=== PATIENT | male | born 1980 | race Caucasian/White ===

== ENCOUNTER 2023-03-18 21:22 | Emergency (ER) | payer BC, SELFPAY ==
[2023-03-18 21:23] VITALS: BP 148/92; PULSE 87; RESP 18; TEMP 36.5; O2SAT 96; BMI 18.1
--- NOTE | 2023-03-18 21:37 | HMH.EDGENADL ---
Discharge Plan Disposition Patient Disposition: Home, Self-Care Prescriptions Prescriptions: New doxycycline monohydrate 100 mg capsule 100 mg PO BID 10 Days Qty: 20 0RF Referrals Follow up/Referrals: Virgil Rossi MD [Primary Care Provider] - See instructions Activity Restrictions/Add. Instructions Additional Instructions/Restrictions: Take doxycycline twice daily for 10 days. Be sure to wear sunscreen, avoid long sun exposure, as discussed. It can cause bad sunburn. If diarrhea begins, you can use probiotic [id number]. Take Tylenol 1000 mg every 6 hours (4 times daily) and ibuprofen 400 mg every 6 hours (4 times daily) as needed with food and water to prevent GI upset and kidney damage. Call your family doctor to establish care for this visit to the emergency department and schedule follow-up within 48 hours to ensure improvement. If you have any worsening of your condition or any other concerning signs or symptoms, return to the emergency department or your primary care doctor for further evaluation. Clinical Impressions Clinical Impression: Tick bite Instructions Patient Instructions: DI for Skin Abscess Discharge ED Provider: Raghu Armendariz General Adult HPI General Chief complaint: Skin/Abscess/Foreign Body Stated complaint: tick bite RT leg Time Seen by Provider: 03/18/23 21:29 Mode of Arrival: Family Vehicle Source of Information: Patient Limitations: No Limitations Description of Symptoms (Recalled from ER Triage Doc. by RN): bump on right upper leg History of Present Illness HPI narrative: Is a 42-year-old male with no relevant medical history presenting with tick bite and concern for tickborne illness. Patient states that he has had numerous ticks on him. Does not remember having one on the specific spot, but developed a circular bruise around it 2 days prior to arrival. Has had a little bit of a headache, but denies any other rash, neck stiffness, confusion, vision changes, weakness, fevers, chills, chest pain, shortness of breath, nausea or vomiting, or any other concerns. Family convinced him to come to the emergency department on concern for tickborne illness. Related Data Previous Rx's Medication Instructions Recorded doxycycline monohydrate 100 mg 100 mg PO BID 10 days #20 caps 03/18/23 capsule Allergies Allergy/AdvReac Type Severity Reaction Status Date / Time No Known Allergies Allergy Unverified 08/01/17 14:41 [facility] Disclaimer: The information contained in this section may have been updated after the patient was seen, as this information can be updated by other users. Social History Smoking Status: Current every day smoker alcohol intake: never current occupational status: employed Travel in the last 8 weeks: None ROS Obtained: Yes All systems reviewed & no additional complaints except as documented Physical Exam General General appearance: alert, in no apparent distress and other ( ) Head Head exam: atraumatic and normocephalic Eye Eye exam: Present normal appearance, PERRL and EOMI ENT ENT exam: Present mucous membranes moist Neck Neck exam: Present normal inspection, full ROM and trachea midline Respiratory Respiratory exam: Absent respiratory distress, wheezes, stridor, accessory muscle use or prolonged expiratory phase Cardiovascular Cardiovascular exam: Present regular rate and normal rhythm Abdominal Exam Abdominal exam: Present soft; Absent distention, tenderness, guarding, rebound, rigidity or normal bowel sounds Extremities Exam Extremities exam: Present other (Circular bruise on distal third of right thigh. Punctate area of erythema in the center. No rash elsewhere.); Absent edema Neurological Exam Neurological exam: Present alert, oriented X3, CN II-XII intact and normal gait; Absent motor sensory deficit Skin Skin exam: Present warm and dry; Absent diaphoresis or erythema Medical Decision Making Medical Records M
[2023-03-18 21:44] VITALS: BP 148/92; PULSE 87; RESP 18; TEMP 36.5; O2SAT 96
== END 2023-03-18 21:55 | disposition home or self-care (01) ==
PROVIDERS: Emergency Provider Emergency Medicine; PCP Family Medicine
DX: S70.361A Insect bite (nonvenomous), right thigh, initial encounter (principal); W57.XXXA Bitten or stung by nonvenomous insect and other nonvenomous arthropods, initial encounter; F17.200 Nicotine dependence, unspecified, uncomplicated
CPT/HCPCS: 99283

== ENCOUNTER 2023-08-24 07:06 | Emergency (ER) | payer BC, SELFPAY ==
[2023-08-24 07:06] VITALS: BP 164/109; PULSE 99; RESP 16; TEMP 36.7; O2SAT 99; BMI 19.1
--- NOTE | 2023-08-24 07:27 | HMH.EDGENADL ---
Discharge Plan Disposition Patient Disposition: Home, Self-Care Prescriptions Prescriptions: No Action doxycycline monohydrate 100 mg capsule 100 mg PO BID 10 Days Qty: 20 0RF Referrals Follow up/Referrals: Provider,Referral, [Primary Care Provider] - See instructions Activity Restrictions/Add. Instructions Additional Instructions/Restrictions: Your symptoms today are consistent with muscle fasciculations which is most likely benign process, there were no obvious electrolyte abnormalities or thyroid dysfunction etc. on your blood test to suggest any cause of your symptoms today. If your symptoms continue I recommend you follow-up with your primary care doctor to get EMG studies and be evaluated for other pathologies but this should be self-limiting. Clinical Impressions Clinical Impression: Fasciculations of muscle Discharge ED Provider: Rambo Mccray General Adult HPI General Chief complaint: Extremity Problem,Nontraumatic Stated complaint: left arm numb Time Seen by Provider: 08/24/23 07:18 Mode of Arrival: Ambulatory Source of Information: Patient Limitations: No Limitations Description of Symptoms (Recalled from ER Triage Doc. by RN): Patient reports left arm tingling since yesterday. Denies chest pain or shortness of breath. History of Present Illness HPI narrative: Patient is a 43-year-old male with no significant past medical history presents today with left upper extremity discomfort. He describes it as if there is occasional burning in his left arm and cramping and then throbbing. Denies any change in movement or sensation. Denies any neck pain denies any chest pain or exertional symptoms. No nausea vomiting diarrhea changes in medications decreased p.o. intake etc. recently. Related Data Previous Rx's Medication Instructions Recorded doxycycline monohydrate 100 mg 100 mg PO BID 10 days #20 caps 03/18/23 capsule Allergies Allergy/AdvReac Type Severity Reaction Status Date / Time No Known Allergies Allergy Unverified 08/01/17 14:41 [facility] Disclaimer: The information contained in this section may have been updated after the patient was seen, as this information can be updated by other users. Social History (Updated 03/18/23 @ 21:42 by Raghu Armendariz MD) Smoking Status: Current every day smoker alcohol intake: never current occupational status: employed Travel in the last 8 weeks: None ROS Obtained: Yes All systems reviewed & no additional complaints except as documented Physical Exam General General appearance: alert Respiratory Respiratory exam: Present normal lung sounds bilaterally Cardiovascular Cardiovascular exam: Present regular rate Extremities Exam Extremities exam: Present other (No evidence of swelling erythema tenderness he has a normal axillary median radial and ulnar nerve motor and sensory function including position pain temperature) Neurological Exam Neurological exam: Present alert and other (While examining the patient he has obvious fasciculations in his left upper extremity which the patient points out as the discomfort that he has been describing) Medical Decision Making Richard Inquiry Pt receiving controlled substance: No Vital Signs: 08/24/23 07:06 Temperature 98.1 F Temperature Source Oral Pulse Rate [Radial] 99 H Respiratory Rate 16 Blood Pressure [Right Arm] 164/109 H Blood Pressure Mean [Right Arm] 127 Blood Pressure Source [Right Arm] Automatic Cuff Blood Pressure Position [Right Arm] Sitting 02 Sat by Pulse Oximetry 99 Oxygen Delivery Method Room Air Lab Data Lab results reviewed: Yes I reviewed the patient's lab results. Lab Results 08/24/23 07:15: WBC 6.2, RBC 5.10, Hgb 16.8, Hct 50.7, MCV 99.5 H, MCH 32.9 H, MCHC 33.1, RDW 13.7, Plt Count 228, MPV 7.8, Neut % (Auto) 59.2, Lymph % (Auto) 28.4, [place] % (Auto) 7.4, Eos % (Auto) 4.2, Baso % (Auto) 0.8, Neut # (Auto) 3.7, Lymph # (Auto) 1.8, [place] # (Auto) 0.5, Eos # (Auto) 0.3, Baso # (Auto) 0.1, Sodium 138, Potassium 4.1, Chloride 105, Carbon Dioxide 27, Anion Gap 10.1, BUN 8 L, Creatinine 1.00, Estimated Creat Clear 80, Estimated GFR 81, Est GFR ( Amer) 98, Glucose 98, Calcium 9.1, Magnesium 2.1, Total Bilirubin 0.5, AST 46, ALT 36, Alkaline Phosphatase 131 H, Total Creatine Kinase 149, Total Protein 7.9, Albumin 4.5, Globulin 3.4 H, Albumin/Globulin Ratio 1.3, TSH 1.28 08/24/23 07:15 08/24/23 07:15 Orders (Tests/Meds): ED MEDICATIONS Generic Name Dose Route Start Last Admin Trade Name Freq PRN Reason Stop Dose Admin Sodium Chloride 10 ml 08/24/23 07:27 Sodium Chloride 0.9% 10ml Vial IV 09/23/23 07:26 NEEDED PRN to Dilute Lorazepam inj Discontinued Medications Generic Name Dose Route Start Last Admin Trade Name [place] PRN Reason Stop Dose Admin Lactated Ringer's 1,000 mls @ 999 mls/hr 08/24/23 07:30 08/24/23 07:35 Lactated Ringer's 1000 Ml Bag IV 08/24/23 08:30 999 mls/hr .Q1H1M NAHOMI Administration Lorazepam 0.5 mg 08/24/23 07:27 08/24/23 07:35 Lorazepam 2mg/Ml Vial IV 08/24/23 07:28 0.5 mg ONCE ONE Administration ORDERS Category Date Time Status CBC w/Auto Diff [Complete Blood Count Auto Diff] Stat Lab 08/24/23 07:15 Completed CK [Creatine Kinase] Stat Lab 08/24/23 07:15 Completed CMP [Comprehensive Metabolic Panel] Stat Lab 08/24/23 07:15 Completed Magnesium Stat Lab 08/24/23 07:15 Completed TSH [Thyroid Stimulating Hormone] Stat Lab 08/24/23 07:15 Completed Medical Decision Narrative: Patient is a 43-year-old male presents today with a normal neurovascular exam in the left upper extremity but significant discomfort associated with what was made evident on physical exam his fasciculations. I am not concerned about referred symptoms such as would be associated with ACS etc. Additionally he has no evidence of any swelling has normal pulses not consistent with any type of vascular abnormality and his neurologic exam is normal aside from the fasciculations. Fasciculations are most likely benign and I will check electrolytes as well as a TSH and give IV fluids and a low-dose of Ativan to see if this will ask any of his symptoms and will reassess. I will advise that he follow-up with his primary care doctor to get EMG studies if this persists as this certainly could be pathologic as well and is associated with other serious pathologies including ALS etc. Reassessment 8:50 AM. Electrolytes thyroid function unremarkable I am not concerned about an emergent medical condition at this point however patient is unchanged from a symptomatic standpoint still having some fasciculations. He has been advised to follow-up with primary care doctor to get EMG studies if needed. This should be self-limiting and is most likely benign process. Patient was discharged in stable condition. Critical Care Critical Care Time Critical Care Time: No
[2023-08-24] MEDS: LORazepam 2MG/ML VIAL 0.5 MG IV (07:35)
[2023-08-24] MEDS: LACTATED RINGERS 1000ML 1,000 ML 999 ML IV (07:35)
[2023-08-24 07:44] LABS: Alanine Aminotransferase 36 U/L (12-78); Albumin Level 4.5 g/dl (3.5-5.0); Albumin/Globulin Ratio 1.3 (1.1-1.8); Alkaline Phosphatase 131 U/L (38-126); Anion Gap 10.1 mEq/L (5-15); Aspartate Amino Transferase 46 U/L (17-59); Bilirubin,Total 0.5 mg/dl (0.2-1.3); Blood Urea Nitrogen 8 mg/dl (9-20); Calcium 9.1 mg/dl (8.4-10.2); Carbon Dioxide 27 mmol/L (22.0-30.0); Chloride 105 mmol/L (98-107); Creatine Kinase 149 U/L (55-170); Creatinine Clearance Estimated 80 mL/min (50-200); Estimated Glomerular Filt Rate 81 ml/min (>60); GFR (African American) 98 ML/MIN (>60); Globulin 3.4 g/dL (1.3-3.2); Glucose 98 mg/dl (74-100); Magnesium 2.1 mg/dl (1.6-2.3); Potassium 4.1 mmoL/L (3.5-5.1); Sodium 138 mmol/L (136-145); Total Protein,Serum 7.9 g/dl (6.3-8.2)
[2023-08-24 08:00] LABS: Basophils # 0.1 K/mm3 (0-0.2); Basophils % 0.8 % (0.1-2.0); Eosinophils # 0.3 K/mm3 (0.0-0.4); Eosinophils % 4.2 % (0.1-12.0); Hematocrit 50.7 % (42.0-52.0); Hemoglobin 16.8 g/dL (14.1-18.0); Lymphocytes # 1.8 K/mm3 (0.7-4.5); Lymphocytes % 28.4 % (10-50); Mean Corpuscular HGB Conc 33.1 g/dL (31.8-35.4); Mean Corpuscular Hemoglobin 32.9 pg (27.0-31.2); Mean Corpuscular Volume 99.5 fl (80-94); Mean Platelet Volume 7.8 fl (7.4-10.4); Monocytes # 0.5 K/mm3 (0.1-1.0); Monocytes % 7.4 % (1.7-9.3); Neutrophils # 3.7 K/mm3 (1.8-7.8); Neutrophils % 59.2 % (37.0-80.0); Platelet Count 228 K/mm3 (142-424); Red Cell Distribution Width 13.7 % (11.5-17.5); White Blood Count 6.2 K/mm3 (4.8-10.8)
[2023-08-24 08:14] LABS: Thyroid Stimulating Hormone 1.28 uIU/mL (0.465-4.68)
[2023-08-24 08:56] VITALS: BP 149/98; PULSE 90; RESP 18; TEMP 36.7; O2SAT 99
== END 2023-08-24 08:56 | disposition home or self-care (01) ==
PROVIDERS: Emergency Provider Student in an Organized Health Care Education/Training Program
DX: R25.3 Fasciculation (principal); R20.0 Anesthesia of skin; F17.200 Nicotine dependence, unspecified, uncomplicated
CPT/HCPCS: 80053; 82550; 83735; 84443; 85025; 96361; 96374; 99285

== ENCOUNTER 2023-08-28 07:07 | Emergency (ER) | payer BC, SELFPAY ==
[2023-08-28] VITALS (7 sets, daily range): BP systolic 143–164; BP diastolic 93–103; PULSE 76–96; RESP 13–16; TEMP 36.5; O2SAT 97–100; BMI 19.2
--- NOTE | 2023-08-28 07:16 | ECG_ITS ---
APPROVED REPORT Exam: Resting ECG HR:88 bpm ECG Measurements Heart Rate 88 AXES ME 148 P 86 QRSd 93 QRS 72 QT 360 T 79 QTc 406 Conclusion SINUS RHYTHM POSSIBLE RIGHT ATRIAL ENLARGEMENT [0.25mV P-WAVE] POSSIBLE RIGHT VENTRICULAR CONDUCTION DELAY [RSR (QR) IN V1/V2] VOLTAGE CRITERIA FOR LVH [MEETS CRITERIA IN ONE OF: R(aVL), S(V1), R(V5), R(V5/V6)+S(V1)] ABNORMAL ECG UNCONFIRMED REPORT Electronically signed by : Agapito Finney MD 08/28/2023 20:18:08
--- NOTE | 2023-08-28 07:36 | CT_ITS ---
FINAL REPORT TECHNIQUE: Thin section axial CT with IV contrast supplemented with multiplanar reconstruction under CT angiogram protocol. 3-D reconstructions were performed. This study was performed with techniques to keep radiation doses as low as reasonably achievable (ALARA). Individualized dose reduction techniques using automated exposure control or adjustment of mA and/or kV according to the patient's size were employed. CLINICAL HISTORY: syncope/CALVO; back/ LUE pain weakness since Fri, hx of testicular cancer COMPARISON: None FINDINGS: The distal vertebral, basilar and distal internal carotid arteries have an unremarkable appearance. No aneurysm is seen. Major intracranial vessels are patent without significant stenosis. There is a 15 mm lytic area in the right posterior mandibular body, with cortical disruption superiorly. This may represent a periapical abscess or radicular cyst. IMPRESSION: Unremarkable CTA of the head. 15 mm lytic area in the right posterior mandible body, with superior cortical disruption. This may represent a periapical abscess or radicular cyst. Reviewed, Interpreted and Dictated by Jass Randle III, MD Transcribed by Myrna Arellano Authenticated and [facility]
--- NOTE | 2023-08-28 07:36 | CT_ITS ---
FINAL REPORT TECHNIQUE: Then section axial CT images of the chest were obtained with contrast. Three-D reformatted images were also obtained.This study was performed with techniques to keep radiation doses as low as reasonably achievable (ALARA). Individualized dose reduction techniques using automated exposure control or adjustment of mA and/or kV according to the patient's size were employed. CLINICAL HISTORY: syncope/CALVO; back/ LUE pain weakness since Fri, hx of testicular cancer COMPARISON: None FINDINGS: There is no evidence of pulmonary embolism. There is no evidence of thoracic aortic aneurysm or dissection. There is no evidence of mediastinal or hilar mass or adenopathy. Mild changes of emphysema are present as well as mild scarring. There is a calcified granuloma present in the left lung base. There is no evidence of pulmonary mass or suspicious nodule. No localized inflammatory process is seen within the lungs. Limited images of the upper abdomen reveal a 10 mm right posterior renal focus of signal, that is not compatible in appearance with a simple cyst. This may represent a complex cyst although other masses cannot be excluded. IMPRESSION: No evidence of pulmonary embolism. 10 mm right posterior renal focus of abnormal signal, not compatible with a simple cyst. This may represent a complex cyst or other mass, and would suggest renal mass protocol CT for further evaluation as clinically indicated. Reviewed, Interpreted and Dictated by Jass Randle III, MD Transcribed by Myrna Arellano Authenticated and [facility]
--- NOTE | 2023-08-28 07:36 | CT_ITS ---
FINAL REPORT TECHNIQUE: Thin-section axial CT with IV contrast supplemented with multi planar reconstruction under CT angiogram protocol was performed of the neck. This study was performed technique to keep radiation doses as low as reasonably achievable, (ALARA). NASCET criteria was utilized during interpretation. CLINICAL HISTORY: syncope/CALVO; back/ LUE pain weakness since Fri COMPARISON: None FINDINGS: Aortic arch: Arch shows no significant narrowing. Great vessel origins are widely patent. Right carotid: No significant stenosis is seen at the cervical common or internal carotid artery. Left carotid: No significant stenosis is seen at the cervical common or internal carotid artery. Vertebrals: Left vertebral artery is dominant. No significant stenosis is present. Note is made of a 15 mm lytic area in the right mandibular bone posteriorly, with cortical disruption superiorly that may represent a periapical abscess or radicular cyst. IMPRESSION: No evidence of significant stenosis or major branch occlusion. 15 mm lytic area in the right mandibular bone posteriorly, with cortical disruption superiorly that may represent periapical abscess or radicular cyst. Reviewed, Interpreted and Dictated by Jass Randle III, MD Transcribed by Myrna Arellano Authenticated and [facility]
--- NOTE | 2023-08-28 07:36 | CT_ITS ---
FINAL REPORT TECHNIQUE: Axial imaging of the left upper extremity was obtained after the intravenous administration of contrast. Reformatted images were also obtained and reviewed. This study was performed with techniques to keep radiation doses as low as reasonably achievable (ALARA). Individualized dose reduction techniques using automated exposure control or adjustment of mA and/or kV according to the patient's size were employed. CLINICAL HISTORY: syncope/CALVO; back/ LUE pain weakness since Fri FINDINGS: Vasculature of the left upper extremity is well-opacified. No occlusion is seen. There is no mass or fluid collection. Musculature is intact. IMPRESSION: Unremarkable CT angiogram of the left upper extremity. Reviewed, Interpreted and Dictated by Jass Randle III, MD Transcribed by Radha Hayden Authenticated and [facility]
--- NOTE | 2023-08-28 07:40 | ED_ITS ---
Discharge Plan Disposition Patient Disposition: Home, Self-Care Prescriptions Prescriptions: New prednisone 50 mg tablet 50 mg PO DAILY 5 Days Qty: 5 0RF Rx Instructions: Please begin 1 day after ED visit gabapentin 100 mg capsule 100 mg PO TID PRN (Reason: pain ) 7 Days Qty: 21 0RF No Action doxycycline monohydrate 100 mg capsule 100 mg PO BID 10 Days Qty: 20 0RF Referrals Follow up/Referrals: Provider,Referral, MD [Primary Care Provider] - See instructions Activity Restrictions/Add. Instructions Additional Instructions/Restrictions: Have a C6-C7 herniated disc with nerve root impingement on appointment has been made to see Dr. Reagan at [facility] this week. Clinical Impressions Clinical Impression: Headache, Syncope, LUE weakness, Cervical disc disorder at C6-C7 level with radiculopathy Instructions Patient Instructions: DI for Syncope in Adults (Fainting), DI for Syncope in Children (Fainting) Discharge ED Provider: Rambo Mccray General Adult HPI General Chief complaint: Syncope Stated complaint: left arm pain blacked out Time Seen by Provider: 08/28/23 07:20 Mode of Arrival: Wheelchair Source of Information: Patient Limitations: No Limitations Description of Symptoms (Recalled from ER Triage Doc. by RN): Patient states that he blacked out this morning and has continued to have left arm pain that is not getting better. States that his head is spinning and he can't even remember how he got here this morning. History of Present Illness HPI narrative: Patient is a 43-year-old male presenting today with multiple complaints. I saw this patient last he presented at that time with left upper extremity fasciculations but has an otherwise normal cardiovascular neurologic exam. He states since that time his fasciculations have completely resolved however he has other complaints now. In the same arm where the fasciculations with his left upper extremity he now has had some progressive weakness in the left upper extremity. 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 He is able to move everything but just has some weakness. States he is also had some [id number] and burning sensation in that left upper extremity primarily in his thumb and index finger but now he states that the pain has become severe. Denies any temperature changes. Also states he is having some back pain just medial to his left scapula. Also today states he is having some mild neck pain as well as a severe headache states he went to take a shower and woke up having passed out did not recall what happened prior to that. Denies any chest pain fevers chills any other symptoms. Other than testicular cancer that is in remission he has no other past medical history. Related Data Previous Rx's Medication Instructions Recorded doxycycline monohydrate 100 mg 100 mg PO BID 10 days #20 caps 03/18/23 capsule gabapentin 100 mg capsule 100 mg PO TID PRN pain 7 days #21 08/28/23 caps prednisone 50 mg tablet 50 mg PO DAILY 5 days #5 tabs 08/28/23 Allergies Allergy/AdvReac Type Severity Reaction Status Date / Time No Known Allergies Allergy Unverified 08/01/17 14:41 [facility] Disclaimer: The information contained in this section may have been updated after the patient was seen, as this information can be updated by other users. Social History (Updated 03/18/23 @ 21:42 by Raghu Armendariz MD) Smoking Status: Current every day smoker alcohol intake: never current occupational status: employed Travel in the last 8 weeks: None ROS Obtained: Yes All systems reviewed & no additional complaints except as documented Physical Exam General General appearance: alert and in no apparent distress Respiratory Respiratory exam: Present normal lung sounds bilaterally; Absent respiratory distress Cardiovascular Cardiovascular exam: Present regular rate, normal rhythm and other (Specifically left upper extremity 2+ radial and ulnar pulses and warm extremities) Abdominal Exam Abdominal exam: Present soft and distention Neurological Exam Neurological exam: Present alert, oriented X3, CN II-XII intact, normal gait and motor sensory deficit (Patient has 4 out of 5 strength ticket writer strength as well as flexion at the elbow otherwise extension internal/external rotation and abduction and normal strength) Expanded Neurological Exam Motor strength - LUE: 4/5 (with flexion at the elbow, thumb abduction and ticket writer ) DTR: 0: biceps (L), brachioradialis (L) and triceps (L) and 2+: biceps (R), brachioradialis (R) and triceps (R) Medical Decision Making Richard Inquiry Pt receiving controlled substance: No Vital Signs: 08/28/23 07:09 08/28/23 09:30 08/28/23 10:00 Temperature 97.7 F Temperature Source Oral Pulse Rate 96 H 83 Pulse Rate [Radial] 87 Respiratory Rate 16 13 13 Blood Pressure 143/97 H 145/99 H Blood Pressure [Right Arm] 147/95 H Blood Pressure Mean [Right Arm] 112 Blood Pressure Source [Right Arm] Automatic Cuff Blood Pressure Position [Right Arm] Sitting 02 Sat by Pulse Oximetry 100 97 97 Oxygen Delivery Method Room Air Room Air Room Air 08/28/23 12:00 08/28/23 12:30 08/28/23 13:00 Temperature Temperature Source Pulse Rate 79 79 81 Pulse Rate [Radial] Respiratory Rate Blood Pressure 153/99 H 158/98 H 164/103 H Blood Pressure [Right Arm] Blood Pressure Mean [Right Arm] Blood Pressure Source [Right Arm] Blood Pressure Position [Right Arm] 02 Sat by Pulse Oximetry 98 99 98 Oxygen Delivery Method Room Air Room Air Room Air Lab Data Lab results reviewed: Yes I reviewed the patient's lab results. Lab Results 08/28/23 07:15: WBC 10.0, RBC 4.86, Hgb 16.4, Hct 48.6, MCV 100.1 H, MCH 33.7 H, MCHC 33.6, RDW 13.8, Plt Count 202, MPV 8.0, Neut % (Auto) 82.2 H, Lymph % (Auto) 11.2, [place] % (Auto) 4.8, Eos % (Auto) 1.5, Baso % (Auto) 0.4, Neut # (Auto) 8.2 H, Lymph # (Auto) 1.1, [place] # (Auto) 0.5, Eos # (Auto) 0.2, Baso # (Auto) 0.0, PT 11.4, INR 1.06, APTT 26.5, Sodium 140, Potassium 3.9, Chloride 106, Carbon Dioxide 27, Anion Gap 10.9, BUN 8 L, Creatinine 0.90, Estimated Creat Clear 90, Estimated GFR 92, Est GFR ( Amer) 111, Glucose 146 H, Calcium 8.6, Magnesium 1.8, Total Bilirubin 0.4, AST 36, ALT 34, Alkaline Phosphatase 113, Total Creatine Kinase 75, Troponin I < 0.01, Total Protein 7.3, Albumin 4.3, Globulin 3.0, Albumin/Globulin Ratio 1.4 08/28/23 10:25: Troponin I < 0.01 08/28/23 07:15 08/28/23 07:15 Orders (Tests/Meds): ED MEDICATIONS Discontinued Medications Generic Name Dose Route Start Last Admin Trade Name Sapphire PRN Reason Stop Dose Admin Lactated Ringer's 1,000 mls @ 999 mls/hr 08/28/23 07:45 08/28/23 08:02 Lactated Ringer's 1000 Ml Bag IV 08/28/23 08:45 999 mls/hr .Q1H1M NAHOMI Administration Iopamidol 150 ml 08/28/23 09:03 08/28/23 09:03 Iopamidol-370 (76%);100ml Bottle IV 08/28/23 09:04 150 ml ONCE ONE Administration Morphine Sulfate 4 mg 08/28/23 07:36 08/28/23 08:03 Morphine 4mg/Ml Syringe IV 08/28/23 07:37 4 mg ONCE ONE Administration Ondansetron HCl 4 mg 08/28/23 07:36 08/28/23 08:02 Ondansetron 4mg/2ml Vial IV 08/28/23 07:37 4 mg ONCE ONE Administration Sodium Chloride 50 ml 08/28/23 09:03 08/28/23 09:03 0.9 % Sodium Chloride 50 Ml Vial IV 08/28/23 09:04 50 ml ONCE ONE Administration Sodium Chloride 10 ml 08/28/23 09:03 08/28/23 09:03 Sodium Chloride 0.9% 10ml Syr (Rad Only) IV 08/28/23 09:04 10 ml ONCE ONE Administration ORDERS Category Date Time Status CT angio UE LT Stat Cat Scan 08/28/23 07:[address] angio chest - dissection Stat Cat Scan 08/28/23 07:[address] angio head Stat Cat Scan 08/28/23 07:[address] angio neck Stat Cat Scan 08/28/23 07:[address] head/brain wo con Stat Cat Scan 08/28/23 07:36 Taken XR orbit bilateral min 4V Stat Exams 08/28/23 10:33 Completed CBC w/Auto Diff [Complete Blood Count Auto Diff] Stat Lab 08/28/23 07:15 Completed CK [Creatine Kinase] Stat Lab 08/28/23 07:15 Completed CMP [Comprehensive Metabolic Panel] Stat Lab 08/28/23 07:15 Completed Magnesium Stat Lab 01/15/24 07:15 Completed PT/PTT Stat Lab 08/28/23 07:15 Completed Trop I [Troponin I] Stat Lab 08/28/23 07:15 Completed Troponin I Q3H Lab 08/28/23 10:25 Completed ECG initial Besson Routine Y 08/28/23 07:16 Completed Medical Decision Narrative: 43-year-old patient presents today with back pain left upper extremity worsening pain and weakness with decreased reflexes in LUE as well as headache and syncope. Differential includes subarachnoid hemorrhage vascular dissection including aortic dissection cervical radiculopathy intracranial mass stroke etc. He states that his fasciculations that were in his left upper extremity several days ago have since resolved. He did not have any weakness at that time nor did he have a headache or any other symptoms but states the symptoms began on Monday and worsened this morning. Other than some mild weakness in his left upper extremity he also has diminised relexes in the LUE and motor weakness seems to be localized to C6-7 nerve root location. Will give him morphine Zofran and IV fluids get a CT scan of his head CT angio of his chest with runoff into his left arm as well as CT angio of the head and neck if possible. Will reassess after this workup is complete. If all this workup is negative given his weakness and concern for possible cervical radiculopathy I will attempt to get an MRI of his head and cervical spine in the emergency department. EKG performed which I first interpreted shows a ventricular rate of 88 normal sinus rhythm patient does have evidence of LVH no acute ST segment elevations, depressions or T wave inversions to suggest acute ischemia he does have 0.25 mV P wave consistent with right atrial enlargement as well. This is nondiagnostic from an emergency standpoint. Reassessment 9:23 AM serial neurologic exams unchanged still has significant weakness but nothing more progressive at this point. CT scan of the head cervical spine chest and upper extremity including CT angios were performed I personally interpreted do not see any obvious abnormality specifically no evidence of dissection intracranial mass hemorrhage etc. Therefore I am concerned that this patient has cervical myelopathy possibly from central disc herniation or critical nerve root compression given the fact that his symptoms seem to be localized to the C 6-7 area. Therefore MRI has been ordered at this point patient was placed in ED observation status is disposition including possible transfer for neurosurgical evaluation is possible depending on the findings of this additional study. Reassessment 2:30 PM after 5 hours of observation MRI was performed and did in fact show a disc herniation at C6-7 with nerve root impingement on the left consistent with the patient's symptoms. I spoke with Dr. Reagan who is a spine surgeon at [facility] who agreed to see the patient this week in clinic. Will prescribe steroids and gabapentin. Patient was given a disc with images I suspect that his pain is what caused a vasovagal syncopal episode as his vascular workup was otherwise negative and he was discharged to see the spine surgeon this week and he understood this. If he developed significant paralysis he was advised to go straight to the emergency department at [facility] or a location where there is neurosurgical intervention available such as etc. Critical Care Critical Care Time Critical Care Time: No
[2023-08-28 07:55] LABS: Basophils % 0.4 % (0.1-2.0); Eosinophils # 0.2 K/mm3 (0.0-0.4); Eosinophils % 1.5 % (0.1-12.0); Hematocrit 48.6 % (42.0-52.0); Hemoglobin 16.4 g/dL (14.1-18.0); Lymphocytes # 1.1 K/mm3 (0.7-4.5); Lymphocytes % 11.2 % (10-50); Mean Corpuscular HGB Conc 33.6 g/dL (31.8-35.4); Mean Corpuscular Hemoglobin 33.7 pg (27.0-31.2); Mean Corpuscular Volume 100.1 fl (80-94); Monocytes # 0.5 K/mm3 (0.1-1.0); Monocytes % 4.8 % (1.7-9.3); Neutrophils # 8.2 K/mm3 (1.8-7.8); Neutrophils % 82.2 % (37.0-80.0); Platelet Count 202 K/mm3 (142-424); Red Blood Count 4.86 M/mm3 (4.60-6.20); Red Cell Distribution Width 13.8 % (11.5-17.5)
[2023-08-28 08:00] LABS: Alanine Aminotransferase 34 U/L (12-78); Albumin Level 4.3 g/dl (3.5-5.0); Albumin/Globulin Ratio 1.4 (1.1-1.8); Alkaline Phosphatase 113 U/L (38-126); Anion Gap 10.9 mEq/L (5-15); Aspartate Amino Transferase 36 U/L (17-59); Bilirubin,Total 0.4 mg/dl (0.2-1.3); Blood Urea Nitrogen 8 mg/dl (9-20); Calcium 8.6 mg/dl (8.4-10.2); Carbon Dioxide 27 mmol/L (22.0-30.0); Chloride 106 mmol/L (98-107); Creatine Kinase 75 U/L (55-170); Creatinine Clearance Estimated 90 mL/min (50-200); Estimated Glomerular Filt Rate 92 ml/min (>60); GFR (African American) 111 ML/MIN (>60); Glucose 146 mg/dl (74-100); Magnesium 1.8 mg/dl (1.6-2.3); Potassium 3.9 mmoL/L (3.5-5.1); Sodium 140 mmol/L (136-145); Total Protein,Serum 7.3 g/dl (6.3-8.2)
[2023-08-28 08:01] LABS: Activated Partial Thrombo Time 26.5 seconds (22.8-30.6); INR 1.06 (0.9-1.1); Prothrombin Time 11.4 seconds (10.1-12.5)
[2023-08-28] MEDS: ONDANSETRON 4MG/2ML VIAL 4 MG IV (08:02)
[2023-08-28] MEDS: LACTATED RINGERS 1000ML 1,000 ML 999 ML IV (08:02)
[2023-08-28] MEDS: MORPHINE 4MG/ML SYRINGE 4 MG IV (08:03)
[2023-08-28 08:28] LABS: Troponin I < 0.01 ng/ml (0.00-0.034)
[2023-08-28] MEDS: 0.9 % SODIUM CHLORIDE 50 ML VIAL IV (09:03)
[2023-08-28] MEDS: SODIUM CHLORIDE 0.9% 10ML SYR (RAD ONLY) 10 ML IV (09:03)
[2023-08-28] MEDS: IOPAMIDOL-370 (76%);100ML BOTTLE 150 ML IV (09:03)
--- NOTE | 2023-08-28 09:06 | PC.NURSE ---
Pt returned to room from [facility]
--- NOTE | 2023-08-28 09:06 | PC.NURSE ---
Dr. Mccray at [facility]
--- NOTE | 2023-08-28 09:22 | MR_ITS ---
FINAL REPORT CLINICAL HISTORY: LUE weakness, fasciulations, diminished reflexes COMPARISON: None FINDINGS: Multiplanar MR imaging of the cervical spine was performed without contrast. On the sagittal T2-weighted images, disc degeneration is seen throughout. There is no evidence of fracture. The vertebral alignment is normal. The cervical spinal cord has an unremarkable appearance without evidence of mass, edema or syrinx. No significant canal stenosis is identified. The cervicomedullary junction is normal. C2-3: An annular bulge is present. There is no significant canal stenosis or neural foraminal narrowing. C3-4: Uncovertebral osteophytes are present with mild right neural foraminal narrowing. C4-5: An annular bulge is present with uncovertebral osteophytes and mild left neural foraminal narrowing. C5-6: Disc osteophyte complex is present with moderate bilateral neural foraminal narrowing. C6-7: An annular bulge is present with uncovertebral osteophytes, and a left foraminal disc extrusion, with left C7 nerve root impingement, mild right and severe left neural foraminal narrowing. C7-T1: There is no significant canal stenosis or neural foraminal narrowing. IMPRESSION: Multilevel cervical disc disease, most severe at the C6-7 level with a left foraminal extruded disc causing left C7 nerve root impingement, mild right and severe left neural foraminal narrowing. Reviewed, Interpreted and Dictated by Jass Randle III, MD Transcribed by Myrna Arellano Authenticated and [facility]
--- NOTE | 2023-08-28 09:23 | PC.NURSE ---
Spoke with Kathy in Care Management. Ok to do MRI.
--- NOTE | 2023-08-28 09:57 | PC.NURSE ---
Per MRI patient cannot be taken up until around 1130-12 for scan. MD notified.
--- NOTE | 2023-08-28 10:33 | XR_ITS ---
FINAL REPORT TECHNIQUE: Orbits 2 views for MRI clearance CLINICAL HISTORY: r/o metal in eyes FOR MRI. COMPARISON: None FINDINGS: ORBITS: 2 views of the orbits in the look up and look down positions were obtained to exclude metal prior to MRI examination. No radiopaque foreign body is noted in either orbit. IMPRESSION: No radiopaque foreign body identified in either orbit. Reviewed, Interpreted and Dictated by Jass Randle III, MD Transcribed by Myrna Arellano Authenticated and [facility]
--- NOTE | 2023-08-28 10:36 | PC.NURSE ---
Pt gone to MRI via wheelchair
[2023-08-28 11:06] LABS: Troponin I < 0.01 ng/ml (0.00-0.034)
--- NOTE | 2023-08-28 11:57 | PC.NURSE ---
Pt returned to room from MRI
--- NOTE | 2023-08-28 11:58 | PC.NURSE ---
pt returned from mri
--- NOTE | 2023-08-28 12:38 | PC.NURSE ---
Dr. Mccray at [facility] to update pt on results and POC
--- NOTE | 2023-08-28 12:40 | PC.NURSE ---
dr allison at bedside to update pt
--- NOTE | 2023-08-28 12:43 | PC.NURSE ---
Spoke with Rita at [facility] bed placement. Advised she would get spine surgery stone driller helper and call back.
--- NOTE | 2023-08-28 13:35 | PC.NURSE ---
Dr. Mccray speaking with Rita at [facility]
--- NOTE | 2023-08-28 13:37 | PC.NURSE ---
Rita with [facility] advised that the surgeon would be occupied for an extensive length of time and asked if we would need to interrupt him. Dr. Mccray advised not to interrupt him and to go ahead and call [facility].
--- NOTE | 2023-08-28 13:45 | PC.NURSE ---
Spoke with Bebo at [facility]. Advised they would call back when provider is available. Called [facility] to [facility] and to make a disc
--- NOTE | 2023-08-28 13:48 | PC.NURSE ---
Dr. Mccray speaking with Transfer nurse Giacomo Roman
--- NOTE | 2023-08-28 13:51 | PC.NURSE ---
Dr. Mccray speaking with Dr. Reagan at
--- NOTE | 2023-08-28 13:53 | PC.NURSE ---
Dr. Reagan advised to have us call [facility] [phone] to make pt a follow-up appointment this week
--- NOTE | 2023-08-28 14:37 | PC.NURSE ---
Appointment made with Dr. Reagan on 08/30/23 at 1300
== END 2023-08-28 14:40 | disposition home or self-care (01) ==
PROVIDERS: Emergency Provider Student in an Organized Health Care Education/Training Program
DX: R51.9 Headache, unspecified (principal); R55 Syncope and collapse; R53.1 Weakness; M79.602 Pain in left arm; M50.123 Cervical disc disorder at C6-C7 level with radiculopathy; F17.200 Nicotine dependence, unspecified, uncomplicated
CPT/HCPCS: 70200; 70450; 70496; 70498; 71275; 72141; 73206; 76376; 80053; 82550; 83735; 84484; 85025; 85610; 85730; 93005; 96361; 96374; 96375; 99285; J2405; Q9967

== ENCOUNTER 2023-10-12 17:00 | Outpatient (RCR) | payer BC, SELFPAY | END 2023-10-12 18:20 | disposition home or self-care (01) | LOC: PT 17:00 | PROVIDERS: Visit Provider Physician Assistant | DX: M54.12 Radiculopathy, cervical region (principal) | CPT/HCPCS: 97010; 97012; 97014; 97110; 97163; 97164; 97530; 97535; G0283 ==

== ENCOUNTER 2024-12-28 18:23 | Emergency (ER) | payer OTHER, SELFPAY ==
[2024-12-28 19:12] VITALS: BP 133/85; PULSE 97; RESP 18; TEMP 36.6; O2SAT 100; BMI 18.8
--- NOTE | 2024-12-28 19:17 | XR_ITS ---
PROCEDURE INFORMATION: Exam: XR Left Foot Exam date and time: 12/28/2024 7:58 PM Age: 44 years old Clinical indication: Injury or trauma; Other: Log fell on foot; Crushing; Left; Additional info: Left ankle injury TECHNIQUE: Imaging protocol: Radiologic exam of the left foot. Views: 3 or more views. COMPARISON: CR XR ANKLE LT MIN 3V 12/28/2024 7:56 PM FINDINGS: Bones/joints: Mildly displaced 2nd proximal metatarsal metadiaphyseal fractures. No dislocation. Nondisplaced 3rd and 4th metatarsal shaft fractures. No dislocation. Soft tissues: Unremarkable. IMPRESSION: 2nd to 4th metatarsal fractures.
--- NOTE | 2024-12-28 19:17 | XR_ITS ---
PROCEDURE INFORMATION: Exam: XR Left Ankle Exam date and time: 12/28/2024 7:56 PM Age: 44 years old Clinical indication: Injury or trauma; Other: Log fell on foot; Crushing; Left; Additional info: Left ankle injury TECHNIQUE: Imaging protocol: Radiologic exam of the left ankle. Views: 3 or more views. COMPARISON: No relevant prior studies available. FINDINGS: Bones/joints: Normal. Soft tissues: Normal. IMPRESSION: No acute findings.
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
[2024-12-28] MEDS: ACETAMINOPHEN 500MG TAB 1000 MG PO (20:07)
[2024-12-28] MEDS: IBUPROFEN 400 MG TABLET 800 MG PO (20:11)
[2024-12-28] MEDS: OXYCODONE 5MG IMMEDIATE RELEASE TABLET 5 MG PO (20:26)
--- NOTE | 2024-12-28 20:44 | CT_ITS ---
PROCEDURE INFORMATION: Exam: CT Left Lower Extremity Without Contrast, Foot Exam date and time: 12/28/2024 8:47 PM Age: 44 years old Clinical indication: Injury or trauma; Other: Log fell on foot; Crushing; Left; Additional info: Tree trunk fell on dorsum of left foot TECHNIQUE: Imaging protocol: CT of the left lower extremity without contrast was performed. Exam focused on the foot. Radiation optimization: All CT scans at this facility use at least one of these dose optimization techniques: automated exposure control; mA and/or kV adjustment per patient size (includes targeted exams where dose is matched to clinical indication); or iterative reconstruction. COMPARISON: CR XR FOOT LT MIN 3V 12/28/2024 7:58 PM FINDINGS: Bones/joints: Mildly displaced, comminuted 2nd proximal metatarsal metadiaphyseal fracture. No dislocation. Nondisplaced 3rd and 4th mid metatarsal shaft fractures. No dislocation. Grossly intact Lisfranc joint. Soft tissues: Unremarkable. IMPRESSION: 2nd to 4th metatarsal fractures.
[2024-12-28 21:23] VITALS: BP 129/87; PULSE 88; RESP 16; TEMP 36.7; O2SAT 98
== END 2024-12-28 21:24 | disposition home or self-care (01) ==
PROVIDERS: Emergency Provider Emergency Medicine; PCP Nurse Practitioner
DX: S92.321A Displaced fracture of second metatarsal bone, right foot, initial encounter for closed fracture (principal); S92.334A Nondisplaced fracture of third metatarsal bone, right foot, initial encounter for closed fracture; S92.344A Nondisplaced fracture of fourth metatarsal bone, right foot, initial encounter for closed fracture; M79.672 Pain in left foot; W20.8XXA Other cause of strike by thrown, projected or falling object, initial encounter
CPT/HCPCS: 29515; 73610; 73630; 73700; 99284

== ENCOUNTER 2025-01-14 09:30 | Outpatient (CLI) | payer OTHER, SELFPAY ==
--- NOTE | 2025-01-14 09:32 | XR_ITS ---
FINAL REPORT CLINICAL HISTORY: Left Foot Met Fracture COMPARISON: 12/28/2024 FINDINGS: LEFT FOOT Three views of the left foot demonstrate no significant interval change in fractures seen at the base of the second metatarsal or of the shaft of the 3rd and 4th metatarsals. No significant callus formation is seen. No new bony abnormality is identified. IMPRESSION: No significant interval change in fractures of the 2nd, 3rd and 4th metatarsals. Reviewed, Interpreted and Dictated by Kathy Laguna MD Transcribed by Radha Hayden Authenticated and [facility]
== END 2025-01-14 23:59 | disposition home or self-care (01) ==
LOC: RAD 09:31
PROVIDERS: PCP Nurse Practitioner; Visit Provider Podiatrist
DX: S92.322A Displaced fracture of second metatarsal bone, left foot, initial encounter for closed fracture (principal); S92.332A Displaced fracture of third metatarsal bone, left foot, initial encounter for closed fracture; S92.342A Displaced fracture of fourth metatarsal bone, left foot, initial encounter for closed fracture; X58.XXXA Exposure to other specified factors, initial encounter; Y93.9 Activity, unspecified
CPT/HCPCS: 73630

== ENCOUNTER 2025-02-11 08:41 | Outpatient (CLI) | payer OTHER, SELFPAY ==
--- OUTSIDE RECORDS SUMMARY | 2024-12-15 12:14 | XMS_ITS | Encounter Summary ---
Author Organization [facility] Address [address] [place] [id number] Care Team Providers Care Hoop [employer]ender [employer] Name Role Phone Pcp, No Primary Care Provider [phone] Source Comments This information has been disclosed to you from confidential records protectfrom disclosure by state law. You shall make no further disclosure of thisinformation without the specific, written, and informed release of theindividual to whom it pertains, or as otherwise permitted by law. A generalauthorization for the release of medical or other information is not sufficientfor the purposes of the release of HIV test results or diagnoses. [id number] Reason for Visit * Reason Comments Head Injury With LOC Encounter Details Date Type Department Care Team (Late st Contact Info) Description 12/15/2024 12:14 PM EDT - 12/15/2024 8:12 PM EDT Emergency [facility] Emergency Department [address] [place] [phone] Noah Arndt MD [address] [facility] [phone] Open extensive facial fractures, initial encounter ([facility]) (Primary Dx); Facial laceration, initial encounter Discharge Disposition: Home or Self Care WITHOUT Home Care Services Social History Tobacco Use Types Packs/Day Years Used Date Smoking Tobacco: Every Day Cigarettes Smokeless Tobacco: Never Tobacco Cessation:Ready to Q uit: Not Asked; Counseling Given: Not Answered Alcohol Use Standard Drinks/Week Comments Not Currently 0 (1 standard drink = 0.6 oz pur e alcohol) Sex and Gender Information Value Date Recorded Sex Assigned at Not on file Legal Sex Male 12:14 PM EDT Gender Identity Not on file Sexual Orientation Not on file documented as of this encounter Last Filed Vital Signs Vital Sign Reading Time Taken Comments Blood Pressure 157/96 12/15/2024 7:48 PM EDT Pulse 86 12/15/2024 7:48 PM EDT Temperature 36.7 C (98.1 F) 12/15/2024 12:20 PM EDT Respiratory Rate 17 12/15/2024 7:48 PM EDT Oxygen Saturation 96% 12/15/2024 7:48 PM EDT Inhaled Oxygen Concentration 96% 12/15/2024 7 :48 PM EDT Weight - - Height - - Body Mass Index - - documented in this encounter Discharge Instructions * Discharge Instructions* Lucia Guillaume MD - 12/15/2024 5:15 PM EDT You were seen in the emergency department after an accident with some farming machinery. You were discovered to have extensive facial fractures on the left side of your face. You were seen by both the Face and Ophthalmology doctors. Follow up with OMFS as an outpatient in 2-3 days at [facility], [address] To call [phone] to schedule appointment. Please also follow up with Ophtho at [facility] Ophthalmology [id number] [place] [address], [address] Call [phone] to schedule an appointment. Bacitracin to left facial wound twice a day. Pressure dressing to remain 3 days. Please take one tablet of Augmentin twice a day for two days. Soft non-chew diet. No NSAIDs/ASA or anticoagulants, no nose blowing x 6 weeks, nasal decongestant for up to 3 days if needed. Apply cool (not cold) ice packs to eyelids for 20 minutes every 2 hours for the first 24 hours. Sleep with head of bed elevated 30 degrees. documented in this encounter Medications at Time of Discharge bacitracin 500 unit/gram ointmentIndicati ons:Open extensive facial fractures, initial encounter [place] Apply topically 2 times a day. 30 g 12/15/2024 AMOXicillin-clav ulanate (AUGMENTIN) 875-125 mg per tabletIndication s:Open extensive facial fractures, initial encounter ([facility] Take 1 tablet by mouth 2 times a day for 7 days. 14 tablet 12/15/2024 documented as of this encounter Progress Notes * Noah Arndt MD - 12/15/2024 3:11 PM EDT ED Attending Attestation Note Date of service: 12/15/2024 This patient was seen by the resident physician. I have seen and examined the patient, agree with the workup, evaluation, management and diagnosis. The care plan has been discussed and I concur. My assessment reveals a 44 y.o. male presenting after head injury. Patient reportedly was struck bya trailer when it fell in the contralateral and struck him in the face. Patient reportedly had lossof consciousness for 15 minutes per family report. On examination, he is awake, alert, reports painin his left face. He has a small laceration overlying his zygoma. No malocclusion. He has mild leftperiorbital ecchymosis with intact extraocular movements. documented in this encounter H&P Notes * Lucia Guillaume MD - 12/15/2024 7:31 PM EDT [facility] ED Note Date of Service: 12/15/2024 Reason for Visit: Head Injury With LOC Patient History MIMI He is a 44 y.o. male with no significant past medical history who presents to the emergency department with head trauma and LOC. Patient hit on the left side of the face with the arm of atrailer. Family reported a 83-67-yllcyg loss of consciousness. Patient is not on blood thinners. Hedenies pain elsewhere. Past Medical History: Diagnosis Date Testicular cancer ([facility] History reviewed. No pertinent surgical history. Physical Exam Vitals: 12/15/24 1531 12/15/24 1639 12/15/24 1834 05/04/25 1949 BP: (!) 156/97 (!) 156/101 (!) 151/94 (!) 157/96 BP Location: Patient Position: BP Cuff Size: Pulse: 86 88 88 86 Resp: 25 17 Temp: TempSrc: SpO2: 98% 99% 96% 96% Physical Exam Constitutional: General: He is not in acute distress. Appearance: Normal appearance. HENT: Head: Normocephalic. Comments: He has a small laceration overlying his zygoma. No malocclusion. He has mild left periorbital ecchymosis with intact extraocular movements. Right Ear: External ear normal. Left Ear: External ear normal. Nose: Nose normal. Mouth/Throat: Mouth: Mucous membranes are moist. Pharynx: Oropharynx is clear. Eyes: Extraocular Movements: Extraocular movements intact. Conjunctiva/sclera: Conjunctivae normal. Pupils: Pupils are equal, round, and reactive to light. Cardiovascular: Rate and Rhythm: Normal rate and regular rhythm. Pulses: Normal pulses. Heart sounds: Normal heart sounds. Pulmonary: Effort: Pulmonary effort is normal. Breath sounds: Normal breath sounds. Chest: Chest wall: No tenderness. Abdominal: General: Abdomen is flat. Palpations: Abdomen is soft. Tenderness: There is no abdominal tenderness. Musculoskeletal: General: No tenderness, deformity or signs of injury. Cervical back: Neck supple. No tenderness. Thoracic back: No tenderness. Lumbar back: No tenderness. Skin: General: Skin is warm and dry. Neurological: General: No focal deficit present. Mental Status: He is alert and oriented to person, place, and time. Psychiatric: Mood and Affect: Mood normal. Behavior: Behavior normal. Diagnostic Studies Labs: Please see EMR for labs obtained during this patient encounter Radiology: Please see EMR for images obtained during this patient encounter ED Course and MDM 44-year-old male with no significant past medical history presenting with head trauma and loss of consciousness. On arrival, the patient is hemodynamically stable and not in acute distress. He does have some mild left periorbital ecchymoses without any obvious injury to the globe. Extraocular movements are intact. He also has a hemostatic laceration overlying his left zygoma. No malocclusion. No obvious signs of intraoral trauma. He has no midline C-spine tenderness. CT head negative for ICH. CT C-spine without evidence of bony abnormality and patient's collar was able to be clinically cleared. CT max face with complex left ZMC fracture extending through the orbital floor and infraorbital foramen, anterior maxillary wall, posterior maxillary wall and zygomatic arch as well as a left mandibular ramus fracture. Both Ophthalmology and Face (OMFS) were consulted and assessed the patient. Noacute surgical intervention was recommended. The patient's facial laceration was repaired by OMFS. Plan for outpatient follow-up and discharged on Augmentin. Trauma laboratory studies are unremarkable. Medications received during this ED visit: Medications ceFAZolin (ANCEF) 2 g in sodium chloride 0.9% 100 mL ADDaptor IVPB (0 g Intravenous Stopped 12/15/241657) lidocaine-EPINEPHrine 2 %-1:100,000 injection 1 mL (1 mL Intradermal Given 12/15/241657) Medical Decision Making Problems Addressed: Open extensive facial fractures, initial encounter ([facility] complicated acute illness or injury Amount and/or Complexity of Data Reviewed Labs: ordered. Radiology: ordered. Risk OTC drugs. Prescription drug management. Impression 1. Open extensive facial fractures, initial encounter ([facility]) 2. Facial laceration, initial encounter Plan Patient deemed appropriate for discharge, see DCI provided. Discussed ED course, findings, and treatments with patient, strict return precautions reviewed, all questions answered. Discharged home in stable condition. The patient was evaluated by myself and the ED Attending Physician. All management and disposition plans were discussed and agreed upon. Emely Guillaume MD Emergency Medicine PGY-2 Addendum 12/18/2024 2111 Upon completing documentation for this patient's encounter, I recognized he did not receive a Tdap booster and has no immunization records on file. On 12/17, I made two attempts to contact the patient via his primary number on file with no answer. On 12/18, his , Roopa He, answered the phone and confirmed that his Tdap is up to date. Lucia Guillaume MD Resident 12/18/24 7327 Cosigned by Noah Arndt MD at 12/18/2024 9:55 PM EDT documented in this encounter Consult Notes * Heri Lozoya MD - 12/15/2024 4:46 PM EDT OPHTHALMOLOGY CONSULT NOTE Gabe is a 44 y.o. male seen in the hospital in consultation for orbital fractures following a farm accident this morning. A trailer arm swung into the left side of his face. +LOC 15 min. No vision changes, flashes, floaters, or diplopia. No results found for: HGBA1C Significant PMH: Past Medical History: Diagnosis Date Testicular cancer ([facility]) Past Ocular History: none Soc Hx: Social History[1] Family History: No known family ocular history Ocular medications: none Allergies: Allergies[2] Ophthalmologic Examination: Base Eye Exam Visual Acuity (Snellen - Linear) Right Left Dist sc 20/20 20/20 Tonometry (Tonopen, 5:12 PM) Right Left Pressure 17 22 Pupils Dark Light Shape React APD Right 4 2 Round 2+ None Left 4 2 Round 2+ None Extraocular Movement Right Left Full, Ortho Full, Ortho Dilation Both eyes: 1.0% Mydriacyl, 2.5% Phenylephrine @ 5:12 PM Slit Lamp and Fundus Exam External Exam Right Left External Normal Normal Slit Lamp Exam Right Left Lids/Lashes Normal edema and ecchymosis Conjunctiva/Sclera Normal temporal hemorrhagic chemosis Cornea Normal Normal Anterior Chamber Deep and clear Deep and clear Iris Normal Normal Lens Clear Clear Fundus Exam Right Left Posterior Vitreous Normal Normal Disc PPA Normal C/D Ratio 0.3 0.3 Macula Normal Normal Vessels Normal Normal Periphery Normal Normal Imaging: CT FACE 25: 1. Left ZMC fracture extending through the orbital floor and infraorbital foramen, anterior maxillary wall, posterior maxillary wall and zygomatic arch. There is moderate associated paranasal sinus hemorrhage Assessment/Plan: Acute fracture of floor/lateral wall of left orbit - Without signs of entrapment radiographically or clinically - No signs of globe injury - No current indications for urgent surgical intervention (Facial fractures per face team, please page ophthalmology if there is desire for ophthalmology to contribute to surgical management for combined case) - Orbital fracture precautions: no NSAIDs/ASA or anticoagulants (if medically able), no nose blowing x 6 weeks, nasal decongestant for up to 3 days if needed. - Apply cool (not cold) ice packs to eyelids for 20 minutes every 2 hours for the first 24 hours. Sleep with head of bed elevated 30 degrees. Follow up: 4wks (info in dc instructions) AOR is Dr. Evans. Heri Lozoya MD Ophthalmology, PGY-3 5:55 PM 12/15/2024 [1] Social History Tobacco Use Smoking status: Every Day Current packs/day: 1.00 Types: Cigarettes Smokeless tobacco: Never Substance Use Topics Alcohol use: Not Currently Drug use: Never [2] No Known Drug Allergies or Adverse Reactions Cosigned by Luciano Evans MD at 12/19/2024 11:14 AM EDT Associated attestation - Luciano Evans MD - 12/19/2024 11:14 AM EDT I did not examine the patient, but have reviewed the resident note. Upon review of the record, the patient appears to have received appropriate care. Luciano Evans MD Ophthalmology * Alexandria Snow DDS - 12/15/2024 3:35 PM EDTAssociated Order(s): ED CONTACT PROVIDER [facility] devops developer Consult Note Reason for Consult Left facial fractures History of Present Illness 44 y.o. male who presented to ED for evaluation of left facial fractures following a farm accident this morning. Patient reports that's a trailer arm swung into the left side of his face with a 15min LOC. Patient reports a laceration on the left side of his face as well as generalized pain and swelling of the left side. Has difficulty opening the left eye though is able to without significant changes in his vision. Denies any double vision or restriction of orbital movement. Patient is edentulous and denies any changes in his occlusion though reports some difficulty opening his mouth as wide as normal. Patient also reports some hypoesthesia of the L V2 distribution. Patient has no other complaints at this time. Review of Systems General: no fevers, no chills, no fatigue HEENT: no headaches, no vision changes, no congestion or rhinorrhea, no sore throat CV: no chest pain, no palpitations, no shortness of breath, no peripheral edema Resp: no shortness of breath, no cough Abd: no abdominal pain, no n/v, no diarrhea, no constipation, no melena : no issues urinating, no hematuria Ext: no swelling, no weakness Skin: no rash, no bruising Heme: no bruising or bleeding, no history of clots Neuro: no headaches, no weakness, no numbness Psych: no agitation, normal mood Objective: Past Medical History: Past Medical History: Diagnosis Date Testicular cancer ([facility]) Past Surgical History: History reviewed. No pertinent surgical history. Medications: Home Medications Not on File Allergies: Allergies[1] Social History: Social History Socioeconomic History Marital status: Spouse name: Not on file Number of children: Not on file Years of education: Not on file Highest education level: Not on file Occupational History Not on file Tobacco Use Smoking status: Every Day Current packs/day: 1.00 Types: Cigarettes Smokeless tobacco: Never Substance and Sexual Activity Alcohol use: Not Currently Drug use: Never Sexual activity: Not on file Other Topics Concern Not on file Social History Narrative Not on file Social Drivers of Health Financial Resource Strain: Not on file Food Insecurity: Not on file Transportation Needs: Not on file Physical Activity: Not on file Stress: Not on file Social Connections: Not on file Intimate Partner Violence: Not on file Housing Stability: Not on file Family History: No family history on file. Vital Signs: Vitals: 12/15/24 1221 12/15/24 1300 12/15/24 1500 12/15/24 1531 BP: (!) 157/92 (!) 152/93 (!) 165/100 (!) 156/97 BP Location: Patient Position: BP Cuff Size: Pulse: 90 97 90 86 Resp: Temp: TempSrc: SpO2: 98% 99% 99% 98% Ins & Outs: No intake or output data in the 24 hours ending 12/15/24 1535 Vitals: BP Min: 152/93 Max: 165/100 Location could not be evaluated. This SmartLink does not work with rows of the type: String Type Pulse Av.6 Min: 86 Max: 97 Temp Av.1 ??F (36.7 ??C) Min: 98.1 ??F (36.7 ??C) Max: 98.1 ??F (36.7 ??C) SpO2 Av.6 % Min: 98 % Max: 99 % Vitals: 12/15/24 1531 BP: (!) 156/97 Pulse: 86 Resp: 25 Temp: SpO2: 98% Physical Exam: General: NAD, AAOx3 Neuro: GCS 15, No acute motor/sensory deficits, CN II-IX grossly intact with the exception of L V2 hypoesthesia. Head/Face: Post traumatic. Hematoma of the L buccal region, TTP. 1.5cm laceration of left pre-auricular region with violation of parotid capsule. No other lacerations of avulsions of the face. Eyes: EOMI/PERRL b/l, no steps palpable around the rims, left subconjunctival hemorrhage present and left periorbital edema. No proptosis, chemosis, visual acuity grossly intact, no vertical dystopia. Ears: ear canals unremarkable, tympanic membrane is sotelo and lucent b/l, no bloody discharge, no garza sign. Nose: nares patent b/l, no nasal bone mobility/crepitus/steps,no rhinorrhea, no epistaxis,no septaldeviation, no signs of septal hematoma Teeth/Throat: no intraoral ecchymosis/ lacerations. No FOME, edentulous. No gross mobility of maxilla or mandible, Prosthetics in place and occlusion is stable and repeatable. TINY limited to 30mm, Oropharynx wnl. Neck: supple, tracheal midline, no subcuataneous emphysema, no swelling/induration, non-TTP. Labs: Recent Labs 12/15/24 1221 WBC 11.2* HGB 14.9 HCT 42.5 PLT 217 Recent Labs 12/15/24 1221 NA 135* K 3.4* BUN 11 CREATININE 0.96 GLUCOSE 110* No results for input(s): POCGLU , POCGMD in the last 72 hours. Invalid input(s): GLU Imaging: CT Head WO contrast Result Date: 12/15/2024 EXAM: CT HEAD WO CONTRAST EXAM: CT MAXILLOFACIAL WO CONTRAST EXAM: CT CERVICAL SPINE WO CONTRAST INDICATION: Head trauma, moderate-severe TECHNIQUE: Axial thin section CT images of the head, face, and cervical spine were obtained without contrast. Sagittal and coronal 2-D multiplanar reconstructions were performed at the scanner. COMPARISON: None available. FINDINGS: Adequate diagnostic quality. Brain parenchyma: Normal brain attenuation. Ventricles and extraaxial spaces: Normal ventricular system. No extra-axial fluid collection. Extracranial soft tissues: Left cheek/periorbital contusion with subcutaneous hematoma and subcutaneous gas overlying the maxillary sinus related to sinus fracture. Calvarium and skull base: No calvarial or skull base fracture. Other: No other abnormalities. Mandible: There is a left mandibular ramus fracture without significant displacement. Mildly expansile peridental lucency surrounding the lone right mandibular molar is favored to be a odontogenic keratocyst. Facial bones including orbits: Left ZMC fracture extending through the orbital floor and infraorbital foramen, anterior maxillary wall, posterior maxillary wall and zygomatic arch. Left lateral orbital wall fracture has mildly displaced fragment, however not causing significant mass effect in the left orbit. Paranasal sinuses, mastoids: Hemorrhagic opacification of the left maxillary sinus..Under pneumatized mastoid sinuses. Cervical alignment: Normal. Cervical osseous structures: No fracture. Mild cervical degenerative disc disease with small osteophytes. No suspicious marrow lesion. Level details: No compressive disc or foraminal abnormality at any level. Extraspinal structures: No neck mass or adenopathy is included. Biapical scarring and emphysematous change. IMPRESSION: HEAD: 1. No acute intracranial abnormality. 2. No intracranial mass effect or hemorrhage. FACE: 1. Left ZMC fracture extending through the orbital floor and infraorbital foramen, anteriormaxillary wall, posterior maxillary wall and zygomatic arch. There is moderate associated paranasalsinus hemorrhage. 2. Left mandibular ramus fracture without significant displacement. TMJ is intact. 3. Left cheek hematoma and subcutaneous gas overlying the maxillary sinus fracture. 4. 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 CERVICAL SPINE: No acute fracture or traumatic malalignment at cervical levels. Report Verified by: Jinny Weinstein DO at 12/15/2024 2:[address] Cervical spine WO contrast Result Date: 12/15/2024 EXAM: CT HEAD WO CONTRAST EXAM: CT MAXILLOFACIAL WO CONTRAST EXAM: CT CERVICAL SPINE WO CONTRAST INDICATION: Head trauma, moderate-severe TECHNIQUE: Axial thin section CT images of the head, face, and cervical spine were obtained without contrast. Sagittal and coronal 2-D multiplanar reconstructions were performed at the scanner. COMPARISON: None available. FINDINGS: Adequate diagnostic quality. Brain parenchyma: Normal brain attenuation. Ventricles and extraaxial spaces: Normal ventricular system. No extra-axial fluid collection. Extracranial soft tissues: Left cheek/periorbital contusion with subcutaneous hematoma and subcutaneous gas overlying the maxillary sinus related to sinus fracture. Calvarium and skull base: No calvarial or skull base fracture. Other: No other abnormalities. Mandible: There is a left mandibular ramus fracture without significant displacement. Mildly expansile peridental lucency surrounding the lone right mandibular molar is favored to be a odontogenic keratocyst. Facial bones including orbits: Left ZMC fracture extending through the orbital floor and infraorbital foramen, anterior maxillary wall, posterior maxillary wall and zygomatic arch. Left lateral orbital wall fracture has mildly displaced fragment, however not causing significant mass effect in the left orbit. Paranasal sinuses, mastoids: Hemorrhagic opacification of the left maxillary sinus..Under pneumatized mastoid sinuses. Cervical alignment: Normal. Cervical osseous structures: No fracture. Mild cervical degenerative disc disease with small osteophytes. No suspicious marrow lesion. Level details: No compressive disc or foraminal abnormality at any level. Extraspinal structures: No neck mass or adenopathy is included. Biapical scarring and emphysematous change. IMPRESSION: HEAD: 1. No acute intracranial abnormality. 2. No intracranial mass effect or hemorrhage. FACE: 1. Left ZMC fracture extending through the orbital floor and infraorbital foramen, anteriormaxillary wall, posterior maxillary wall and zygomatic arch. There is moderate associated paranasalsinus hemorrhage. 2. Left mandibular ramus fracture without significant displacement. TMJ is intact. 3. Left cheek hematoma and subcutaneous gas overlying the maxillary sinus fracture. 4. 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 CERVICAL SPINE: No acute fracture or traumatic malalignment at cervical levels. Report Verified by: Jinny Weinstein DO at 12/15/2024 2:[address] Maxillofacial WO contrast Result Date: 12/15/2024 EXAM: CT HEAD WO CONTRAST EXAM: CT MAXILLOFACIAL WO CONTRAST EXAM: CT CERVICAL SPINE WO CONTRAST INDICATION: Head trauma, moderate-severe TECHNIQUE: Axial thin section CT images of the head, face, and cervical spine were obtained without contrast. Sagittal and coronal 2-D multiplanar reconstructions were performed at the scanner. COMPARISON: None available. FINDINGS: Adequate diagnostic quality. Brain parenchyma: Normal brain attenuation. Ventricles and extraaxial spaces: Normal ventricular system. No extra-axial fluid collection. Extracranial soft tissues: Left cheek/periorbital contusion with subcutaneous hematoma and subcutaneous gas overlying the maxillary sinus related to sinus fracture. Calvarium and skull base: No calvarial or skull base fracture. Other: No other abnormalities. Mandible: There is a left mandibular ramus fracture without significant displacement. Mildly expansile peridental lucency surrounding the lone right mandibular molar is favored to be a odontogenic keratocyst. Facial bones including orbits: Left ZMC fracture extending through the orbital floor and infraorbital foramen, anterior maxillary wall, posterior maxillary wall and zygomatic arch. Left lateral orbital wall fracture has mildly displaced fragment, however not causing significant mass effect in the left orbit. Paranasal sinuses, mastoids: Hemorrhagic opacification of the left maxillary sinus..Under pneumatized mastoid sinuses. Cervical alignment: Normal. Cervical osseous structures: No fracture. Mild cervical degenerative disc disease with small osteophytes. No suspicious marrow lesion. Level details: No compressive disc or foraminal abnormality at any level. Extraspinal structures: No neck mass or adenopathy is included. Biapical scarring and emphysematous change. IMPRESSION: HEAD: 1. No acute intracranial abnormality. 2. No intracranial mass effect or hemorrhage. FACE: 1. Left ZMC fracture extending through the orbital floor and infraorbital foramen, anteriormaxillary wall, posterior maxillary wall and zygomatic arch. There is moderate associated paranasalsinus hemorrhage. 2. Left mandibular ramus fracture without significant displacement. TMJ is intact. 3. Left cheek hematoma and subcutaneous gas overlying the maxillary sinus fracture. 4. 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 CERVICAL SPINE: No acute fracture or traumatic malalignment at cervical levels. Report Verified by: Jinny Weinstein DO at 12/15/2024 2:19 PM EDT Assessment/Plan: Gabe He is a 44 y.o. male with left moderately displaced periorbital fractures and laceration of the left pre-auricular/parotid region which violated the parotid capsule. Ophthalmology evaluation shows no acute concerns and normal IOPs. No acute visual disturbances associated with injuries today, no surgical intervention indicate at this time. Would recommend close outpatient follow up within 3 days for continued evaluation. Discussed return precautions. Incidental finding of lesion to be followed up and worked up in clinic. Laceration to be repaired bedside. Recommend augmentin 875/125 x 7 days for coverage of parotid exposure with recommendation of pressure dressing. - No acute surgical interventions at this time. - Dispo: follow up with OMFS as an outpatient in 2-3 days for eval of injuries and workup of mandibular lesion at [facility], [address] To call [phone] to schedule appointment. - Bacitracin to left facial wound BID. Pressure dressing to remain 3 days - Augmentin 875/125 BID x 7 days - Soft non-chew diet Procedure Dx: Left facial laceration Procedure: repair of left facial laceration Anesthesia: 2% lidocaine with 1:100k epi, 1 cc Verbal consent obtained from patient. Risks, benefits, prognosis of the procedure discussed in detail, especially risk for additional procedure and possible paresthesia/hyposthesia. Proper anesthesiaachieved to patient comfort. Patient was prepped and draped in preparation for procedure. Laceration sites were irrigated with copious amount of normal saline, and cleaned thoroughly with povidone iodine. The lacerations were explored and no foreign bodies were noted . Deep sutures were placed in interrupted fashion with 4- 0 vicryl to attempt closure of the parotid capsule followed by superficial sutures in running fashion with 5- 0 fast gut. Appropriate eversion and primary closure of wound obtained. Patient tolerated procedure well. Pressure dressing applied and post op instructions reviewed with patient. Alexandria Snow DDS devops developer 12/15/2024 3:35 PM 0916 [1] No Known Drug Allergies or Adverse Reactions Cosigned by Ervin Vee DDS at 12/16/2024 1:01 PM EDT Associated attestation - Ervin Vee DDS - 12/16/2024 1:01 PM EDT Agree with plan. documented in this encounter Nursing Notes * Niyah Perez RN - 12/15/2024 12:17 PM EDT Pt brought in by EMS after working at home and attempting to move a trailer when a piece hit him inthe head +LOC for 15-20 minutes -thinners Lac to L cheek GCS 15 Pt in C-collar * Christiane Noel RN - 12/15/2024 12:15 PM EDT Patient was involved in an incident with a trailer and a hitch that hit him in the head, patient had LOC, not on blood thinners documented in this encounter ED Notes * Bianca Gray - 12/15/2024 7:18 PM EDT Received patient from previous shift social work nurse for disposition. Patient discharged with family * Ashly Corral - 12/15/2024 1:28 PM EDT 1:28 PM Pt passed from previous SW for disposition and follow up. SW to follow if needs arise. No additional needs identified at this time. 2:10 PM Pt's arrived to the ED. SW able to provide brief update and needed support to family. SW able to assist family back to pt's room. RN and Pt agreeable. Pt denies any needs or concerns. No additional needs identified at this time. Passed to next staff SW for dispo. RAKAN Perea, [facility] Emergency Department. [phone] * RAKAN Millard LSW - 12/15/2024 12:21 PM EDT [facility] Social Work Trauma / Critically Ill Assessment Gabe He [id number] Patient Registered as ZZZ: No Reason for Referral / Presenting Problem: SRU/Trauma/Critical: Fall Means of Arrival: EMS ([facility]) Patient Arrived from: Home: Legal Next of Kin: (Roopa He [phone]) Family Contact and Involvement: Patient has 2 Sons Assessment and Social Work Interventions: Patient is a 44 year old male that presented to the ED after a fall at home. Per report, the patient was working at home when he attempted to move a trailer and was struck in the head. + LOC. Per EMS, the patient's is aware and is en route to [facility] ~ will obtain contact information upon arrival. Safety Concerns: N/A Referral / Disposition Plan: Sign out provided to oncoming SW at shift change for disposition and family support. RAKAN Jackson LSW Critical Care / MICU SW / Emergency Department SW. Please contact via secure [employer] message documented in this encounter Plan of Treatment Not on file documented as of this encounter Procedures Procedure Name Priority Date/Time Associated Diagnosis Comments CT MAXILLOFACIAL WO CONTRAST STAT 12/15/2024 12:[address] CERVICAL SPINE WO CONTRAST STAT 12/15/2024 12:[address] HEAD WO CONTRAST STAT 12/15/2024 1 2:55 PM EDT ED BLOOD GAS PANEL, VENOUS STAT 12/15/2024 12:21 PM EDT ETHANOL, SERUM Routine 12/15/2024 12:21 PM EDT ABO/RH Routine 12/15/2024 12:21 PM EDT CBC STAT 12/15/2024 12:21 PM EDT ANTIBODY SCREEN Routine 12/15/2024 12:21 PM EDT BUN STAT 12/15/2024 12:21 PM EDT CREATININE, SERUM Routine 12/15/2024 12: 21 PM EDT documented in this encounter Results * CT Maxillofacial WO contrast (12/15/2024 12:55 PM EDT) Anatomical Region Laterality Modality Head Computed Tomogra phy 12/15/2024 12:5 4 PM EDT Impressions 12/15/2024 2:19 PM EDT IMPRESSION: HEAD: 1. No acute intracranial abnormality. 2. No intracranial mass effect or hemorrhage. FACE: 1. Left ZMC fracture extending through the orbital floor and infraorbital foramen, anterior maxillary wall, posterior maxillary wall and zygomatic arch. There is moderate associated paranasal sinus hemorrhage. 2. Left mandibular ramus fracture without significant displacement. TMJ is intact. 3. Left cheek hematoma and subcutaneous gas overlying the maxillary sinus fracture. 4. 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 CERVICAL SPINE: No acute fracture or traumatic malalignment at cervical levels. Report Verified by: Jinny Weinstein DO at 12/15/2024 2:19 PM EDT Narrative 12/15/2024 2:19 PM EDT EXAM: CT HEAD WO CONTRAST EXAM: CT MAXILLOFACIAL WO CONTRAST EXAM: CT CERVICAL SPINE WO CONTRAST INDICATION: Head trauma, moderate-severe TECHNIQUE: Axial thin section CT images of the head, face, and cervical spine were obtained without contrast. Sagittal and coronal 2-D multiplanar reconstructions were performed at the scanner. COMPARISON: None available. FINDINGS: Adequate diagnostic quality. Brain parenchyma: Normal brain attenuation. Ventricles and extraaxial spaces: Normal ventricular system. No extra-axial fluid collection. Extracranial soft tissues: Left cheek/periorbital contusion with subcutaneous hematoma and subcutaneous gas overlying the maxillary sinus related to sinus fracture. Calvarium and skull base: No calvarial or skull base fracture. Other: No other abnormalities. Mandible: There is a left mandibular ramus fracture without significant displacement. Mildly expansile peridental lucency surrounding the lone right mandibular molar is favored to be a odontogenic keratocyst. Facial bones including orbits: Left ZMC fracture extending through the orbital floor and infraorbital foramen, anterior maxillary wall, posterior maxillary wall and zygomatic arch. Left lateral orbital wall fracture has mildly displaced fragment, however not causing significant mass effect in the left orbit. Paranasal sinuses, mastoids: Hemorrhagic opacification of the left maxillary sinus.. Under pneumatized mastoid sinuses. Cervical alignment: Normal. Cervical osseous structures: No fracture. Mild cervical degenerative disc disease with small osteophytes. No suspicious marrow lesion. Level details: No compressive disc or foraminal abnormality at any level. Extraspinal structures: No neck mass or adenopathy is included. Biapical scarring and emphysematous change. Procedure Note Jinny Weinstein MD - 12/15/2024 EXAM: CT HEAD WO CONTRAST EXAM: CT MAXILLOFACIAL WO CONTRAST EXAM: CT CERVICAL SPINE WO CONTRAST INDICATION: Head trauma, moderate-severe TECHNIQUE: Axial thin section CT images of the head, face, and cervicalspine were obtained without contrast. Sagittal and coronal 2-D multiplanarreconstructions were performed at the scanner. COMPARISON: None available. FINDINGS: Adequate diagnostic quality. Brain parenchyma: Normal brain attenuation. Ventricles and extraaxial spaces: Normal ventricular system. Noextra-axial fluid collection. Extracranial soft tissues: Left cheek/periorbital contusion withsubcutaneous hematoma and subcutaneous gas overlying the maxillary sinusrelated to sinus fracture. Calvarium and skull base: No calvarial or skull base fracture. Other: No other abnormalities. Mandible: There is a left mandibular ramus fracture without significantdisplacement. Mildly expansile peridental lucency surrounding the loneright mandibular molar is favored to be a odontogenic keratocyst. Facial bones including orbits: Left ZMC fracture extending through theorbital floor and infraorbital foramen, anterior maxillary wall, posteriormaxillary wall and zygomatic arch. Left lateral orbital wall fracture hasmildly displaced fragment, however not causing significant mass effect inthe left orbit. Paranasal sinuses, mastoids: Hemorrhagic opacification of the leftmaxillary sinus.. Under pneumatized mastoid sinuses. Cervical alignment: Normal. Cervical osseous structures: No fracture. Mild cervical degenerative discdisease with small osteophytes. No suspicious marrow lesion. Level details: No compressive disc or foraminal abnormality at any level. Extraspinal structures: No neck mass or adenopathy is included. Biapicalscarring and emphysematous change. IMPRESSION: HEAD: 1. No acute intracranial abnormality. 2. No intracranial mass effect or hemorrhage. FACE: 1. Left ZMC fracture extending through the orbital floor and infraorbitalforamen, anterior maxillary wall, posterior maxillary wall and zygomaticarch. There is moderate associated paranasal sinus hemorrhage. 2. Left mandibular ramus fracture without significant displacement. TMJis intact. 3. Left cheek hematoma and subcutaneous gas overlying the maxillary sinusfracture. 4. 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 CERVICAL SPINE: No acute fracture or traumatic malalignment at cervical levels. Report Verified by: Jinny Weinstein DO at 12/15/2024 2:19 PM EDT us Lucia Guillaume MD IMG CT ORDERABLES Final Res ult * CT Cervical spine WO contrast (12/15/2024 12:55 PM EDT) Anatomical Region Laterality Modality C-spine, Neck Computed Tomogra phy 12/15/2024 12:5 4 PM EDT Impressions 12/15/2024 2:19 PM EDT IMPRESSION: HEAD: 1. No acute intracranial abnormality. 2. No intracranial mass effect or hemorrhage. FACE: 1. Left ZMC fracture extending through the orbital floor and infraorbital foramen, anterior maxillary wall, posterior maxillary wall and zygomatic arch. There is moderate associated paranasal sinus hemorrhage. 2. Left mandibular ramus fracture without significant displacement. TMJ is intact. 3. Left cheek hematoma and subcutaneous gas overlying the maxillary sinus fracture. 4. 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 CERVICAL SPINE: No acute fracture or traumatic malalignment at cervical levels. Report Verified by: Jinny Weinstein DO at 12/15/2024 2:19 PM EDT Narrative 12/15/2024 2:19 PM EDT EXAM: CT HEAD WO CONTRAST EXAM: CT MAXILLOFACIAL WO CONTRAST EXAM: CT CERVICAL SPINE WO CONTRAST INDICATION: Head trauma, moderate-severe TECHNIQUE: Axial thin section CT images of the head, face, and cervical spine were obtained without contrast. Sagittal and coronal 2-D multiplanar reconstructions were performed at the scanner. COMPARISON: None available. FINDINGS: Adequate diagnostic quality. Brain parenchyma: Normal brain attenuation. Ventricles and extraaxial spaces: Normal ventricular system. No extra-axial fluid collection. Extracranial soft tissues: Left cheek/periorbital contusion with subcutaneous hematoma and subcutaneous gas overlying the maxillary sinus related to sinus fracture. Calvarium and skull base: No calvarial or skull base fracture. Other: No other abnormalities. Mandible: There is a left mandibular ramus fracture without significant displacement. Mildly expansile peridental lucency surrounding the lone right mandibular molar is favored to be a odontogenic keratocyst. Facial bones including orbits: Left ZMC fracture extending through the orbital floor and infraorbital foramen, anterior maxillary wall, posterior maxillary wall and zygomatic arch. Left lateral orbital wall fracture has mildly displaced fragment, however not causing significant mass effect in the left orbit. Paranasal sinuses, mastoids: Hemorrhagic opacification of the left maxillary sinus.. Under pneumatized mastoid sinuses. Cervical alignment: Normal. Cervical osseous structures: No fracture. Mild cervical degenerative disc disease with small osteophytes. No suspicious marrow lesion. Level details: No compressive disc or foraminal abnormality at any level. Extraspinal structures: No neck mass or adenopathy is included. Biapical scarring and emphysematous change. Procedure Note Jinny Weinstein MD - 12/15/2024 EXAM: CT HEAD WO CONTRAST EXAM: CT MAXILLOFACIAL WO CONTRAST EXAM: CT CERVICAL SPINE WO CONTRAST INDICATION: Head trauma, moderate-severe TECHNIQUE: Axial thin section CT images of the head, face, and cervicalspine were obtained without contrast. Sagittal and coronal 2-D multiplanarreconstructions were performed at the scanner. COMPARISON: None available. FINDINGS: Adequate diagnostic quality. Brain parenchyma: Normal brain attenuation. Ventricles and extraaxial spaces: Normal ventricular system. Noextra-axial fluid collection. Extracranial soft tissues: Left cheek/periorbital contusion withsubcutaneous hematoma and subcutaneous gas overlying the maxillary sinusrelated to sinus fracture. Calvarium and skull base: No calvarial or skull base fracture. Other: No other abnormalities. Mandible: There is a left mandibular ramus fracture without significantdisplacement. Mildly expansile peridental lucency surrounding the loneright mandibular molar is favored to be a odontogenic keratocyst. Facial bones including orbits: Left ZMC fracture extending through theorbital floor and infraorbital foramen, anterior maxillary wall, posteriormaxillary wall and zygomatic arch. Left lateral orbital wall fracture hasmildly displaced fragment, however not causing significant mass effect inthe left orbit. Paranasal sinuses, mastoids: Hemorrhagic opacification of the leftmaxillary sinus.. Under pneumatized mastoid sinuses. Cervical alignment: Normal. Cervical osseous structures: No fracture. Mild cervical degenerative discdisease with small osteophytes. No suspicious marrow lesion. Level details: No compressive disc or foraminal abnormality at any level. Extraspinal structures: No neck mass or adenopathy is included. Biapicalscarring and emphysematous change. IMPRESSION: HEAD: 1. No acute intracranial abnormality. 2. No intracranial mass effect or hemorrhage. FACE: 1. Left ZMC fracture extending through the orbital floor and infraorbitalforamen, anterior maxillary wall, posterior maxillary wall and zygomaticarch. There is moderate associated paranasal sinus hemorrhage. 2. Left mandibular ramus fracture without significant displacement. TMJis intact. 3. Left cheek hematoma and subcutaneous gas overlying the maxillary sinusfracture. 4. 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 CERVICAL SPINE: No acute fracture or traumatic malalignment at cervical levels. Report Verified by: Jinny Weinstein DO at 12/15/2024 2:19 PM EDT us Lucia Guillaume MD IMG CT ORDERABLES Final Res ult * CT Head WO contrast (12/15/2024 12:55 PM EDT) Anatomical Region Laterality Modality Head Computed Tomogra phy 12/15/2024 12:5 4 PM EDT Impressions 12/15/2024 2:19 PM EDT IMPRESSION: HEAD: 1. No acute intracranial abnormality. 2. No intracranial mass effect or hemorrhage. FACE: 1. Left ZMC fracture extending through the orbital floor and infraorbital foramen, anterior maxillary wall, posterior maxillary wall and zygomatic arch. There is moderate associated paranasal sinus hemorrhage. 2. Left mandibular ramus fracture without significant displacement. TMJ is intact. 3. Left cheek hematoma and subcutaneous gas overlying the maxillary sinus fracture. 4. 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 CERVICAL SPINE: No acute fracture or traumatic malalignment at cervical levels. Report Verified by: Jinny Weinstein DO at 12/15/2024 2:19 PM EDT Narrative 12/15/2024 2:19 PM EDT EXAM: CT HEAD WO CONTRAST EXAM: CT MAXILLOFACIAL WO CONTRAST EXAM: CT CERVICAL SPINE WO CONTRAST INDICATION: Head trauma, moderate-severe TECHNIQUE: Axial thin section CT images of the head, face, and cervical spine were obtained without contrast. Sagittal and coronal 2-D multiplanar reconstructions were performed at the scanner. COMPARISON: None available. FINDINGS: Adequate diagnostic quality. Brain parenchyma: Normal brain attenuation. Ventricles and extraaxial spaces: Normal ventricular system. No extra-axial fluid collection. Extracranial soft tissues: Left cheek/periorbital contusion with subcutaneous hematoma and subcutaneous gas overlying the maxillary sinus related to sinus fracture. Calvarium and skull base: No calvarial or skull base fracture. Other: No other abnormalities. Mandible: There is a left mandibular ramus fracture without significant displacement. Mildly expansile peridental lucency surrounding the lone right mandibular molar is favored to be a odontogenic keratocyst. Facial bones including orbits: Left ZMC fracture extending through the orbital floor and infraorbital foramen, anterior maxillary wall, posterior maxillary wall and zygomatic arch. Left lateral orbital wall fracture has mildly displaced fragment, however not causing significant mass effect in the left orbit. Paranasal sinuses, mastoids: Hemorrhagic opacification of the left maxillary sinus.. Under pneumatized mastoid sinuses. Cervical alignment: Normal. Cervical osseous structures: No fracture. Mild cervical degenerative disc disease with small osteophytes. No suspicious marrow lesion. Level details: No compressive disc or foraminal abnormality at any level. Extraspinal structures: No neck mass or adenopathy is included. Biapical scarring and emphysematous change. Procedure Note Jinny Weinstein MD - 12/15/2024 EXAM: CT HEAD WO CONTRAST EXAM: CT MAXILLOFACIAL WO CONTRAST EXAM: CT CERVICAL SPINE WO CONTRAST INDICATION: Head trauma, moderate-severe TECHNIQUE: Axial thin section CT images of the head, face, and cervicalspine were obtained without contrast. Sagittal and coronal 2-D multiplanarreconstructions were performed at the scanner. COMPARISON: None available. FINDINGS: Adequate diagnostic quality. Brain parenchyma: Normal brain attenuation. Ventricles and extraaxial spaces: Normal ventricular system. Noextra-axial fluid collection. Extracranial soft tissues: Left cheek/periorbital contusion withsubcutaneous hematoma and subcutaneous gas overlying the maxillary sinusrelated to sinus fracture. Calvarium and skull base: No calvarial or skull base fracture. Other: No other abnormalities. Mandible: There is a left mandibular ramus fracture without significantdisplacement. Mildly expansile peridental lucency surrounding the loneright mandibular molar is favored to be a odontogenic keratocyst. Facial bones including orbits: Left ZMC fracture extending through theorbital floor and infraorbital foramen, anterior maxillary wall, posteriormaxillary wall and zygomatic arch. Left lateral orbital wall fracture hasmildly displaced fragment, however not causing significant mass effect inthe left orbit. Paranasal sinuses, mastoids: Hemorrhagic opacification of the leftmaxillary sinus.. Under pneumatized mastoid sinuses. Cervical alignment: Normal. Cervical osseous structures: No fracture. Mild cervical degenerative discdisease with small osteophytes. No suspicious marrow lesion. Level details: No compressive disc or foraminal abnormality at any level. Extraspinal structures: No neck mass or adenopathy is included. Biapicalscarring and emphysematous change. IMPRESSION: HEAD: 1. No acute intracranial abnormality. 2. No intracranial mass effect or hemorrhage. FACE: 1. Left ZMC fracture extending through the orbital floor and infraorbitalforamen, anterior maxillary wall, posterior maxillary wall and zygomaticarch. There is moderate associated paranasal sinus hemorrhage. 2. Left mandibular ramus fracture without significant displacement. TMJis intact. 3. Left cheek hematoma and subcutaneous gas overlying the maxillary sinusfracture. 4. 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 CERVICAL SPINE: No acute fracture or traumatic malalignment at cervical levels. Report Verified by: Jinny Weinstein DO at 12/15/2024 2:19 PM EDT us Lucia Guillaume MD IMG CT ORDERABLES Final Res ult * Antibody screen (12/15/2024 12:21 PM EDT) Antibody Screen Negative 12/15/2024 1:49 PM EDT [facility] Blood 12/15/2024 12:2 1 PM EDT 12/15/2024 1:09 PM EDT Narrative [facility] - 12/15/2024 1:51 PM EDT Testing performed by [facility] Transfusion Service us Inbound Adt I/F BLOOD BANK TEST ORDERABLES Final Result Performing Organization Address [facility] Co de Phone Number [facility] [address] [facility] * ABO/Rh (12/15/2024 12:21 PM EDT) ABO Grouping O 12/15/2024 1:34 PM EDT [facility] Rh Type Positive 12/15/2024 1:34 PM EDT [facility] Blood 12/15/2024 12:2 1 PM EDT 12/15/2024 1:09 PM EDT us Inbound Adt I/F BLOOD BANK TEST ORDERABLES Final Result Performing Organization Address City/State/[facility] Co de Phone Number [facility] [address] [facility] * Ethanol, Serum (12/15/2024 12:21 PM EDT) Ethanol <10 0 - 10 mg/dL 12/15/2024 1:34 PM EDT [facility] Serum 12/15/2024 12:2 1 PM EDT 12/15/2024 1:08 PM EDT us Noah Arndt MD LAB BLOOD ORDERABLES Final Result [facility] [address] * Creatinine, serum (12/15/2024 12:21 PM EDT) Creatinine 0.96 0.60 - 1.30 mg/dL 12/15/2024 1:33 PM EDT [facility] EGFR >90 12/15/2024 1:33 PM EDT [facility] Comment: As of 2021, the estimated GFR is calculated using the 2020 Chronic Kidney Disease Epidemiology Collaboration (CKD-EPI) equation. In line with the NKF-ASN Task Force Recommendations, this equation does not include a coefficient for race. A single eGFR value is calculated for each patient. The reference interval is >60 mL/min/1.73m2. eGFR values greater than 90 will be reported as >90mL/min/1.73m2. Reference: Patrick C, Eber M, Patrizia DC, Aleksandra ND, Kiesha CA, Shira LA, et al. A Unifying Approach for GFR Estimation: Recommendations of the NKF-ASN Task Force on Reassessing the inclusion of Race in Diagnosing Kidney Disease. Am J Kidney Dis. 2020. GFR is estimated using creatinine, age, and sex. Patient's values should be interpreted as a trend. Below 90 mL/min/1.73m2, the patient may have renal disease. For additional information: www.kidney.org Plasma 12/15/2024 12:2 1 PM EDT 12/15/2024 1:08 PM EDT us Noah Arndt MD LAB BLOOD ORDERABLES Final Result [facility] [address] * BUN (12/15/2024 12:21 PM EDT) BUN 11 7 - 25 mg/dL 12/15/2024 1:33 PM EDT [facility] Plasma 12/15/2024 12:2 1 PM EDT 12/15/2024 1:08 PM EDT Noah Arndt MD LAB BLOOD ORDERABLES Final Result [facility] [address] * (ABNORMAL) CBC (12/15/2024 12:21 PM EDT) WBC 11.2(H) 3.8 - 10.8 10E3/uL 12/15/2024 1:18 PM EDT [facility] RBC 4.54 4.20 - 5.80 10E6/uL 12/15/2024 1:18 PM EDT [facility] Hemoglobin 14.9 13.2 - 17.1 g/dL 12/15/2024 1:18 PM EDT [facility] Hematocrit 42.5 38.5 - 50.0 % 12/15/2024 1:18 PM EDT [facility] MCV 93.7 80.0 - 100.0 fL 12/15/2024 1:18 PM EDT [facility] MCH 32.8 27.0 - 33.0 pg 12/15/2024 1:18 PM EDT [facility] MCHC 35.0 32.0 - 36.0 g/dL 12/15/2024 1:18 PM EDT [facility] RDW 13.2 11.0 - 15.0 % 12/15/2024 1:18 PM EDT [facility] Platelets 217 140 - 400 10E3/uL 12/15/2024 1:18 PM EDT [facility] MPV 7.5 7.5 - 11.5 fL 12/15/2024 1:18 PM EDT [facility] Whole Blood 12/15/2024 12:2 1 PM EDT 12/15/2024 1:08 PM EDT Noah Arndt MD LAB BLOOD ORDERABLES Final Result [facility] [address] [facility]. [address] * (ABNORMAL) ED Blood Gas Panel, Venous (12/15/2024 12:21 PM EDT) pH, Frederic 7.39 7.32 - 7.42 12/15/2024 1:12 PM EDT [facility] pCO2, Frederic 41 41 - 51 mm Hg 12/15/2024 1:12 PM EDT [facility] pO2, Frederic 47(H) 25 - 40 mm Hg 12/15/2024 1:12 PM EDT [facility] HCO3, Frederic 24 24 - 28 mmol/L 12/15/2024 1:12 PM EDT [facility] CO2 Content, Venous 26 25 - 29 mmol/L 12/15/2024 1:12 PM EDT [facility] Base Excess, Frederic -0.2 -2.0 - 3.0 mmol/L 12/15/2024 1:12 PM EDT [facility] Sodium 135(L) 136 - 146 mEq/L 12/15/2024 1:12 PM EDT [facility] Potassium 3.4(L) 3.5 - 5.0 mEq/L 12/15/2024 1:12 PM EDT [facility] Comment:In the event of in-v itro hemolysis, potassium results may be falsely elevated. Always interpret lab results in conjunction with clinical findings. If hemolysis is suspected, a serum sample may be collected for repeat assessment of potassium. Free Calcium, WB 5.10 4.50 - 5.30 mg/dL 12/15/2024 1:12 PM EDT [facility] Glucose 110(H) 70 - 100 mg/dL 12/15/2024 1:12 PM EDT [facility] Hematocrit. Blood Gas Panel 40.0 40 - 52 % 12/15/2024 1:12 PM EDT [facility] Hemoglobin, Blood Gas Panel 13.3(L) 14.0 - 18.0 g/dL 12/15/2024 1:12 PM EDT [facility] %HBO2, Venous 78.7(H) 40.0 - 70.0 % 12/15/2024 1:12 PM EDT [facility] Carboxyhemoglobi n, Venous 6.3(H) 0.0 - 2.0 % 12/15/2024 1:12 PM EDT [facility] Comment: CARBOXYHEMOGLOBIN (CO) REFERENCE RANGES: Non-Smokers: <2 % Smokers: <8 % TOXIC: >20 % Methemoglobin, Venous 0.7 0.0 - 1.5 % 12/15/2024 1:12 PM EDT [facility] Reduced hemoglobin, Venous 14.2 % 12/15/2024 1:12 PM EDT [facility] Comment:The reference interv al for this test has not been established. Interpret the result carefully within clinical context. Lactate, Frederic 1.8(H) 0.5 - 1.6 mmol/L 12/15/2024 1:12 PM EDT [facility] Blood, Venous 12/15/2024 12: 21 PM EDT 12/15/2024 1:08 PM EDT us Noah Arndt MD LAB BLOOD ORDERABLES Final Result [facility] [address] [place] [address], [facility] documented in this encounter Visit Diagnoses Diagnosis Open extensive facial fractures, initial encounter ([facility])- Primary Facial laceration, initial encounter Facial laceration Open wound of face, unspecified site, without mention of complication documented in this encounter Administered Medications Inactive Administered Medications - up to 3 most recent administrations Medication Order MAR Action Action Date Dose Rate Site ceFAZolin (ANCEF) 2 g in sodium chloride 0.9% 100 mL ADDaptor IVPB Intravenous, at 200 mL/hr, Once, On 12/15/24 at 1516, For 1 dose, Use ADDaptor product - Mix Thoroughly Before Administration, Indication? Prophylaxis-Surgical, Site of diagnosed infections (select all that apply): Empiric Treatment New Bag 12/15/2024 3:29 PM EDT 2 g 200 mL/hr lidocaine-EPINEPHrine 2 %-1:100,000 injection 1 mL 1 mL, Intradermal, Once, On 12/15/24 at 1632, For 1 doseIndications:Facial laceration, initial encounter Given 12/15/2024 4:58 PM EDT 1 mL Other documented in this encounter Active and Recently Administered Medications Times are shown in EDT. Scheduled Medication Order 12/13/2024 12/14/2024 12/15/2024 ceFAZolin (ANCEF) 2 g in sodium chloride 0.9% 100 mL ADDaptor IVPB (COMPLETED) Intravenous, at 200 mL/hr, Once, On 12/15/24 at 1516, For 1 dose, Use ADDaptor product - Mix Thoroughly Before Administration, Indication? Prophylaxis-Surgical, Site of diagnosed infections (select all that apply): Empiric Treatment 1529 (New Bag - Prov ider: Niyah Perez RN)1658 (Stopped - Provider: Niyah Perez RN) lidocaine-EPINEPHrine 2 %-1:100,000 injection 1 mL (COMPLETED) 1 mL, Intradermal, Once, On 12/15/24 at 1632, For 1 dose 1658 (Given - Provid er: Niyah Perez RN) documented in this encounter Care Teams [employer] Relationship Specialty Start Date End Date Pcp, No No Address PCP - General 12/15/24 documented as of this encounter
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
--- NOTE | 2025-02-11 08:44 | XR_ITS ---
FINAL REPORT CLINICAL HISTORY: Left Foot 2nd through 4th Met Fracture COMPARISON: 01/14/2025 FINDINGS: LEFT FOOT Three views of the left foot demonstrate fractures through the proximal portion of the 2nd metatarsal and midportion of the 3rd and 4th metatarsals. There is no intra-articular extension. No significant change from the previous exam. The visualized joint spaces are normally aligned. The soft tissues are unremarkable. IMPRESSION: 2nd, 3rd, and 4th metatarsal fractures with no significant change from previous. Reviewed, Interpreted and Dictated by Ramon Mullins MD Transcribed by Shawanda Hernandez Authenticated and [facility]
--- OUTSIDE RECORDS SUMMARY | 2025-02-11 08:56 | XMS_ITS | Clinical Summary ---
Author Organization [facility] Address [address] [place] [address] Phone Care Team Providers Care Rivet Tosser Name Role Phone Nonstaff, Referring Primary Care Provider Unavai lable Allergies No known active allergies Medications No known medications Active Problems No known active problems Immunizations Immunization Administration Dates Next Due Tdap 08/26/2020 Surgical History Surgery Date Site/Laterality Comments LAPAROSCOPIC APPENDECTOMY 03/10/2012 N/A Laparoscopic Appendectomy; Surgeon: Carmen Ho MD; Location: [facility]; Service: General Medical History Medical History Date Comments Malignant neoplasm of left testis (HCC) Family History Medical History Relation Name Comments Heart Disease Father Relation Name Status Comments Father Social History Tobacco Use Types Packs/Day Years Used Date Smoking Tobacco: Every Day Cigarettes Smokeless Tobacco: Never Tobacco Cessation:Ready to Q uit: No Alcohol Use Standard Drinks/Week Comments No 0 (1 standard drink = 0.6 oz pur e alcohol) Sex and Gender Information Value Date Recorded Sex Assigned at Not on file Legal Sex Male 6:14 AM EDT Gender Identity Not on file Sexual Orientation Not on file Obstetrics History Last Filed Vital Signs Vital Sign Reading Time Taken Comments Blood Pressure 130/81 03/15/2022 12:02 PM EDT Pulse 81 03/15/2022 12:02 PM EDT Temperature 36.7 C (98 F) 03/15/2022 10:10 AM EDT Respiratory Rate 16 03/15/2022 10:10 AM EDT Oxygen Saturation 98% 03/15/2022 12:02 PM EDT Inhaled Oxygen Concentration - - Weight 59 kg (130 lb) 03/15/2022 10:10 AM EDT Height 180.3 cm (5' 11 ) 03/15/2022 10:10 AM EDT Body Mass Index 18.13 03/15/2022 10:10 AM EDT Plan of Treatment Health Maintenance Due Date Last Done Comments Annual Wellness Exam 1982 Hepatitis B Vaccine (1 of 3 - 19+ 3-dose series) 1998 Pneumococcal Vaccine 0-49 (1 of 2 - PCV) 1998 COVID-19 Vaccine (3 - 2023- season) 2024 01/06/2021, 12/09/2020 Cologuard 2024 Colon Cancer Screening 2024 Colonoscopy 2024 FIT 2024 Sigmoidoscopy 2024 Virtual Colonography 2024 Influenza Vaccine (Season Ended) 2025 DTaP/TDaP/Td (6 - Td or Tdap) 08/26/2030 08/26/2020, 06/19/1995, 12/12/1984, Additional history exists Meningococcal B Vaccine Aged Out No l onger eligible based on patient's age to complete this topic Insurance [employer] Care Teams Rivet Tosser Relationship Specialty Start Date End Date Nonstaff, Referring PCP - General 03/10/12
--- OUTSIDE RECORDS SUMMARY | 2025-02-11 08:56 | XMS_ITS | Encounter Summary ---
Author Organization [facility] Address [address] [place] [address] Care Team Providers Care Strapping Machine Operator Name Role Phone Pcp, No Primary Care Provider [phone] Source Comments This information has been disclosed [...] release of HIV test results or diagnoses. [id number] Health Encounter Details Date Type Department Care Team (Late st Contact Info) Description 12/17/2024 Telephone [facility] Ophthalmology at [id number] [place] [address] Team, Ophthalmology Social History Tobacco Use Types Packs/Day Years Used Date Smoking Tobacco: Every Day Cigarettes Smokeless Tobacco: Never Alcohol Use Standard Drinks/Week Comments Not Currently 0 (1 standard drink = 0.6 oz pur e alcohol) Sex and Gender Information Value Date Recorded Sex Assigned at Not on file Legal Sex Male 12:14 PM EDT Gender Identity Not on file Sexual Orientation Not on file documented as of this encounter Miscellaneous Notes * Telephone Encounter - Salome Solorzano - 12/17/2024 2:05 PM EDT ----- Message from Resident Kasia Lozoya MD sent at 12/15/2024 5:17 PM EDT ----- Pls add to my general clinic into CL slot on 01/28 documented in this encounter Plan of Treatment Not on file documented as of this encounter Visit Diagnoses Not on filedocumented in this encounter Care Teams Strapping Machine Operator Relationship Specialty Start Date End Date Pcp, No No Address PCP - General 12/15/24 documented as of this encounter
--- OUTSIDE RECORDS SUMMARY | 2025-02-11 08:56 | XMS_ITS | Encounter Summary ---
Author Organization [facility] Address [address] [place] [address] Care Team Providers Care Supervisor Heavy Equipment Name Role Phone Pcp, No Primary Care Provider Unavailabl e Encounter Details Date Type Department Care Team (Latest Contact Info) Description 12/30/2024 Travel Social History Tobacco Use Types Packs/Day Years Used Date Smoking Tobacco: Never Assessed Sex and Gender Information Value Date Recorded Sex Assigned at Not on file Legal Sex Male 6:56 PM EDT Gender Identity Not on file Sexual Orientation Not on file documented as of this encounter Plan of Treatment Not on file documented as of this encounter Visit Diagnoses Not on filedocumented in this encounter Additional Health Concerns Assessment Noted Time A Body Mass Index follow-up plan has been documented for the patient 12/31/2024 7:54 AM EDT documented as of this encounter Care Teams Supervisor Heavy Equipment Relationship Specialty Start Date End Date Pcp, Kanika [address] [place] [address] PCP - General Family Medicine 12/30/24 documented as of this encounter
--- OUTSIDE RECORDS SUMMARY | 2025-02-11 08:56 | XMS_ITS | Encounter Summary ---
Author Organization [facility] Address [address] [place] [address] Care Team Providers Care Echocardiograph Tech Name Role Phone Pcp, No Primary Care Provider [phone] Source Comments This information has been disclosed [...] release of HIV test results or diagnoses. [id number] Health Encounter Details Date Type Department Care Team (Late st Contact Info) Description 12/15/2024 Ophth Exam [facility] Ophthalmology at [address] [place] [address] Heri Lozoya MD [address] [place] [address] Social History Tobacco Use Types Packs/Day Years [...] on filedocumented in this encounter Care Teams Echocardiograph Tech Relationship Specialty Start Date End Date Pcp, No No Address PCP - General 12/15/24 documented as of this encounter
--- OUTSIDE RECORDS SUMMARY | 2025-02-11 08:56 | XMS_ITS | Clinical Summary ---
Author Organization [facility] Address [address] [place] [address] Care Team Providers Care Head Bone Grinder Name Role Phone Pcp, No Primary Care Provider [phone] Source Comments This information has been disclosed to you from confidential records protectedfrom disclosure by state law. You shall make no further disclosure of thisinformation without the specific, written, and informed release of theindividual to whom it pertains, or as otherwise permitted by law. A generalauthorization for the release of medical or other information is not sufficientfor the purposes of therelease of HIV test results or diagnoses. [id number] Allergies No known active allergies Medications bacitracin 500 unit/gram ointmentIndicat ions:Open extensive facial fractures, initial encounter [place] Apply topically 2 times a day. 30 g Active Active Problems Problem Noted Date Diagnosed Date Facial laceration 12/15/2024 Encounters Date Type Department Care Team Description 12/17/2024 Telephone [facility] Ophthalmology at [address] [place] [phone] Team, Ophthalmology 12/15/2024 12:14 PM EDT - 12/15/2024 8:12 PM EDT Emergency [facility] Emergency Department [address] [place] [phone] Noah Arndt MD Open extensive facial fractures, initial encounter ([facility] (Primary Dx); Facial laceration, initial encounter Discharge Disposition: Home or Self Care WITHOUT Home Care Services 12/15/2024 Ophth Exam [facility] Ophthalmology at [address] [place] [address] [facility] [address] [place] [address] Heri Lozoya MD from Last 3 Months Social History Tobacco Use Types Packs/Day Years [...] on file Sexual Orientation Not on file Last Filed Vital Signs Vital Sign Reading [...] - - Body Mass Index - - Plan of Treatment Health Maintenance Due Date Last Done Comments ASCVD Assessment 1979 Abnormal Colonoscopy Follow Up 1979 Hepatitis C Screening (MyChart) 1979 Tobacco Cessation Readiness 1979 Depression Screening 1997 HIV Screening 1997 Immunization: DTaP/Tdap/Td (1 - Tdap) 1998 Immunization: Hepatitis B (1 of 3 - 19+ 3-dose series) 1998 Immunization: Pneumococcal (1 of 2 - PCV) 1998 Immunization: COVID-19 ( season) 2024 Cologuard (FIT-DNA) 2024 Colonoscopy 2024 Colorectal Cancer Screening (MyChart) 2024 Stool Testing (gFOBT) 2024 Immunization: Influenza (MyChart) (Season Ended) 04/14 Procedures Procedure Name Priority Date/Time Associated Diagnosis Comments CT MAXILLOFACIAL WO CONTRAST STAT 12/15/2024 12:[address] CERVICAL SPINE WO CONTRAST STAT 12/15/2024 12:[address] HEAD WO CONTRAST STAT 12/15/2024 1 2:55 PM EDT ANTIBODY SCREEN Routine 12/15/2024 12:21 PM EDT ABO/RH Routine 12/15/2024 12:21 PM EDT ETHANOL, SERUM Routine 12/15/2024 12:21 PM EDT CREATININE, SERUM Routine 12/15/2024 12: 21 PM EDT BUN STAT 12/15/2024 12:21 PM EDT CBC STAT 12/15/2024 12:21 PM EDT ED BLOOD GAS PANEL, VENOUS STAT 12/15/2024 12:21 PM EDT from Last 3 Months Results * CT Maxillofacial WO contrast (12/15/2024 [...] at cervical levels. Report Verified by: Jinny Weinsteni DO at 12/15/2024 2:19 PM EDT Narrative [...] IMG CT ORDERABLES Final Res ult * (ABNORMAL) ED Blood Gas Panel, Venous (12/15/2024 12:21 PM EDT) pH, Frederic 7.39 7.32 - 7.42 12/15/2024 1:12 PM EDT [facility] pCO2, Frederic 41 41 - 51 mm Hg 12/15/2024 1:12 PM EDT [facility] pO2, Frederic 47(H) 25 - 40 mm Hg 12/15/2024 1:12 PM EDT [facility] HCO3, Frederic 24 24 - 28 mmol/L 12/15/2024 1:12 PM EDT [facility] CO2 Content, Venous 26 25 - 29 mmol/L 12/15/2024 1:12 PM EDT [facility] Base Excess, Frederic -0.2 -2.0 - 3.0 mmol/L 12/15/2024 1:12 PM EDT [facility] Sodium 135(L) 136 - 146 mEq/L 12/15/2024 1:12 PM EDT [facility] Potassium 3.4(L) 3.5 - 5.0 mEq/L 12/15/2024 1:12 PM EDT [facility] Comment:In the event of in-v itro hemolysis, potassium results may be falsely elevated. Always interpret lab results in conjunction with clinical findings. If hemolysis is suspected, a serum sample may be collected for repeat assessment of potassium. Free Calcium, WB 5.10 4.50 - 5.30 mg/dL 12/15/2024 1:12 PM EDT [facility] Glucose 110(H) 70 - 100 mg/dL 12/15/2024 1:12 PM EDT [facility] Hematocrit. Blood Gas Panel 40.0 40 - 52 % 12/15/2024 1:12 PM EDT [facility] Hemoglobin, Blood Gas Panel 13.3(L) 14.0 - 18.0 g/dL 12/15/2024 1:12 PM EDT [facility] %HBO2, Venous 78.7(H) 40.0 - 70.0 % 12/15/2024 1:12 PM EDT [facility] Carboxyhemoglobi n, Venous 6.3(H) 0.0 - 2.0 % 12/15/2024 1:12 PM EDT [facility] Comment: CARBOXYHEMOGLOBIN (CO) REFERENCE RANGES: Non-Smokers: <2 % Smokers: <8 % TOXIC: >20 % Methemoglobin, Venous 0.7 0.0 - 1.5 % 12/15/2024 1:12 PM EDT [facility] Reduced hemoglobin, Venous 14.2 % 12/15/2024 1:12 PM EDT [facility] Comment:The reference interv al for this test has not been established. Interpret the result carefully within clinical context. Lactate, Frederic 1.8(H) 0.5 - 1.6 mmol/L 12/15/2024 1:12 PM EDT [facility] Blood, Venous 12/15/2024 12: 21 PM EDT 12/15/2024 1:08 PM EDT us Noah Arndt MD LAB BLOOD ORDERABLES Final Result [facility] [id number], [facility] * Ethanol, Serum (12/15/2024 12:21 PM EDT) Ethanol <10 0 - 10 mg/dL 12/15/2024 1:34 PM EDT [facility] Serum 12/15/2024 12:2 1 PM EDT 12/15/2024 1:08 PM EDT us Noah Arndt MD LAB BLOOD ORDERABLES Final Result [facility] [address] [facility]. [address] * ABO/Rh (12/15/2024 12:21 PM EDT) ABO Grouping O 12/15/2024 1:34 PM EDT [facility] Rh Type Positive 12/15/2024 1:34 PM EDT [facility] Blood 12/15/2024 12:2 1 PM EDT 12/15/2024 1:09 PM EDT us Inbound Adt I/F BLOOD BANK TEST ORDERABLES Final Result Performing Organization Address City/[facility]/ZIP Co de Phone Number [facility] [address] [facility]. [address] * (ABNORMAL) CBC (12/15/2024 12:21 PM EDT) WBC 11.2(H) 3.8 - 10.8 10E3/uL 12/15/2024 1:18 PM EDT [facility] RBC 4.54 4.20 - 5.80 10E6/uL 12/15/2024 1:18 PM EDT [facility] Hemoglobin 14.9 13.2 - 17.1 g/dL 12/15/2024 1:18 PM EDT [facility] Hematocrit 42.5 38.5 - 50.0 % 12/15/2024 1:18 PM EDT [facility] MCV 93.7 80.0 - 100.0 fL 12/15/2024 1:18 PM EDT [facility] MCH 32.8 27.0 - 33.0 pg 12/15/2024 1:18 PM EDT [facility] MCHC 35.0 32.0 - 36.0 g/dL 12/15/2024 1:18 PM EDT [facility] RDW 13.2 11.0 - 15.0 % 12/15/2024 1:18 PM EDT [facility] Platelets 217 140 - 400 10E3/uL 12/15/2024 1:18 PM EDT [facility] MPV 7.5 7.5 - 11.5 fL 12/15/2024 1:18 PM EDT [facility] Whole Blood 12/15/2024 12:2 1 PM EDT 12/15/2024 1:08 PM EDT Noah Arndt MD LAB BLOOD ORDERABLES Final Result [facility] [address] * Antibody screen (12/15/2024 12:21 PM EDT) Antibody Screen Negative 12/15/2024 1:49 PM EDT [facility] Blood 12/15/2024 12:2 1 PM EDT 12/15/2024 1:09 PM EDT Narrative [facility] - 12/15/2024 1:51 PM EDT Testing performed by [facility] Transfusion Service us Inbound Adt I/F BLOOD BANK TEST ORDERABLES Final Result [facility] [address] [facility]. [address] * BUN (12/15/2024 12:21 PM EDT) BUN 11 7 - 25 mg/dL 12/15/2024 1:33 PM EDT [facility] Plasma 12/15/2024 12:2 1 PM EDT 12/15/2024 1:08 PM EDT us Noah Arndt MD LAB BLOOD ORDERABLES Final Result [facility] [address] [facility]. [address] * Creatinine, serum (12/15/2024 12:21 PM EDT) Creatinine 0.96 0.60 - 1.30 mg/dL 12/15/2024 1:33 PM EDT [facility] EGFR >90 12/15/2024 1:33 PM EDT [facility] Comment: As of 2021, the estimated [...] Arndt MD LAB BLOOD ORDERABLES Final Result [facility] [address] [place] [address], [facility] from Last 3 Months Insurance [facility] MANAGED MEDICAID LIABILITY Member Subscriber Plan / Payer (Ef fective 2024-Present) Name:Gabe He Relation to Subscriber:Self Name:Gabe He Payer ID:[id number] Group ID:Not on file Type:Indemnijose Address: [address] [place] [address] Care Teams Head Bone Grinder Relationship Specialty Start Date End Date Pcp, No No Address PCP - General 12/15/24
--- OUTSIDE RECORDS SUMMARY | 2025-02-11 08:57 | XMS_ITS | Encounter Summary ---
Author Organization [facility] Address [address] [id number] Care Team Providers Care Clinical Transformation Specialist Name Role Phone Pcp, No Primary Care Provider Unavailabl e Reason for Referral * Consultation (Routine) - Closed Specialty Diagnoses / Procedures Referred By Contac t Referred To Contact Oral Surgery Diagnoses Facial laceration, initial encounter Multiple closed fractures of skull and face without intracranial injury, initial encounter (CMS/HCC) Closed fracture of vault of skull, loss of consciousness (CMS/HCC) Jay Mckee MD [address] [place] [address] Phone: tel: fax: [facility] ton container filler Faculty [facility] [address] [place] [address] [address] [place] [address] Phone: tel: Referral ID Status Reason Start Date Expiration Date V isits Requested Visits Authorized [id number] Closed Specialty Services Required 12/24/2024 06/25/2026 1 1 Encounter Details Date Type Department Care Team (Latest Contact Info) Description 12/24/2024 [facility] [address] [place] [address] Jay Mckee MD [facility] [place] [address] Facial laceration, initial encounter (Primary Dx); Closed fracture of nasal bone, initial encounter; Multiple closed fractures of skull [...] as of this encounter Plan of Treatment Scheduled Referrals Name Type Priority Associated Diagnoses Orde r Schedule Ambulatory referral to Oral Maxillofacial Surgery Outpatient Referral Routine Facial laceration, initial encounter Multiple closed fractures of skull and face without intracranial injury, initial encounter ([facility]) Closed fracture of vault of skull, loss of consciousness (CMS/[facility]) Expected: 12/24/2024 (Approximate), Expires: 06/26/2026 documented as of this encounter Visit Diagnoses Diagnosis Facial laceration, initial encounter- Primary Closed fracture of nasal bone, initial encounter Multiple closed fractures of skull and face without intracranial injury, initial encounter ([facility]) Closed fracture of vault of skull, loss of consciousness (CMS/[facility]) Closed fracture of vault of skull without mention of intracranial injury, with loss of consciousness of unspecified duration documented in this encounter Care Teams Clinical Transformation Specialist Relationship Specialty Start Date [place] [address] PCP - General Family Medicine 12/30/24 documented as of this encounter
--- OUTSIDE RECORDS SUMMARY | 2025-02-11 08:57 | XMS_ITS | Clinical Summary ---
Author Organization [facility] Address [address] [id number] Care Team Providers Care Spool Salvager Name Role Phone Pcp, No Primary Care Provider Unavailabl e Encounters Date Type Department Care Team Description 01/20/2025 Telephone [facility] [address] [place] [phone] Dental, SurgeonMD 12/30/2024 2:30 PM EDT Office Visit [facility] [address] [place] [phone] Lan Marshall, DMD Facial laceration, initial encounter; Multiple closed fractures of skull and face without intracranial injury, initial encounter (CMS/HCC); Closed fracture of vault of skull, loss of consciousness (CMS/HCC) 12/30/2024 Travel 12/27/2024 Telephone [facility] [address] [place] [phone] Dental, SurgeonMD 12/24/2024 [facility] [address] [place] [phone] Jay Mckee MD Facial laceration, initial encounter (Primary Dx); Closed fracture of nasal bone, initial encounter; Multiple closed fractures of skull and face without intracranial injury, initial encounter (CMS/HCC); Closed fracture of vault of skull, loss of consciousness (CMS/HCC) 12/19/2024 Abstract [facility] [address] [place] [phone] Dental, SurgeonMD 12/15/2024 Orders Only External Location [address] [place] [phone] Provider, External 12/15/2024 Orders Only External Location [address] [place] [address] Provider, External 12/15/2024 Orders Only External Location [address] [place] [address] Provider, External from Last 3 Months Social History Tobacco [...] Mass Index 18.37 12/30/2024 3:09 PM EDT Plan of Treatment Health Maintenance Due Date Last Done Comments Dental Prophylaxis 1979 Dental X-Ray: Bitewings 1979 Dental X-Ray: Full Mouth 1979 [facility]-Depression Screening 1979 [facility]-HIV Screening 1979 [facility]-Hepatitis C Screening 1979 [facility]-Infant/Child/Adol SDOH Screenings 1979 HPV Vaccines (1 - Male 3-dose series) 1994 [facility]- SDOH Screenings 1997 [facility]-Adult SDOH Screenings 1997 [facility]-Hepatitis B Vaccines (1 of 3 - 19+ 3-dose series) 1998 [id number] Vaccine (3 - season) 2024 01/06/2021, 12/09/2020 CT Colonography 2024 Colonoscopy 2024 FIT-DNA 2024 FIT 2024 FOBT 2024 Sigmoidoscopy 2024 [facility]-Colorectal Cancer Screening 2024 [facility]-Influenza Vaccine (Season Ended) 2025 Dental Oral Exam 07/03/2025 12/30/2024 [facility]-Zoster Vaccines (1 of 2) 2029 [facility]-DTaP,Tdap,and Td Vaccines (6 - Td or Tdap) 08/26/2030 08/26/2020, 06/19/1995, 12/12/1984, Additional history exists [facility]-IPV Vaccines Aged Out 12/12/1982, 08/1980, 1979, Additional history exists No longer eligible based on patient's age to complete this topic [facility]-HIB Vaccines Aged Out No longer e ligible based on patient's age to complete this topic [facility]-Hepatitis A Vaccines Aged Out No longer eligible based on patient's age to complete this topic [facility]Y-Pneumococcal Vaccine: Pediatrics (0 to 5 Years) and At-Risk Patients (6 to 49 Years) Aged Out No longer eligible based on patient's age to complete this topic [facility]-Rotavirus Vaccines Aged Out No lo nger eligible based on patient's age to complete this topic Procedures Procedure Name Priority Date/Time Associated Diagnosis Comments COMPREHENSIVE ORAL EVALUATION - NEW OR ESTABLISHED PATIENT Routine 12/30/2024 2:30 PM EDT Multiple closed fractures of skull and face without intracranial injury, initial encounter ([facility]) CT OUTSIDE IMAGES 12/15/2024 12: [address] OUTSIDE IMAGES 12/15/2024 12: [address] OUTSIDE IMAGES 12/15/2024 12: 52 PM EDT from Last 3 Months Results * CT OUTSIDE IMAGES (12/15/2024 12:52 PM EDT) Only the most recent of3 resultswithin the time period is included. Anatomical Region Laterality Modality Computed Tomogra phy 12/15/2024 12:5 2 PM EDT us External Provider IMG CT PROCEDURES Final Result from Last 3 Months Insurance [facility] MEDICAID [facility] MEDICAID Care Teams Spool Salvager Relationship Specialty Start Date [place] [address] PCP - General Family Medicine 12/30/24
--- OUTSIDE RECORDS SUMMARY | 2025-02-11 08:57 | XMS_ITS | Encounter Summary ---
Author Organization [facility] Address [address] [id number] Care Team Providers Care Cook Vacuum Kettle Name Role Phone Unavailable Primary Care Provider Unavailabl e Encounter Details Date Type Department Care Team (Late st Contact Info) Description 12/19/2024 Abstract [facility] composing machine operator [facility] [address] [phone] Dental, Surgeon, [address] [place] [address] Social History Tobacco Use Types Packs/Day Years [...]
--- OUTSIDE RECORDS SUMMARY | 2025-02-11 08:57 | XMS_ITS | Encounter Summary ---
Author Organization [facility] Address [address] [id number] Care Team Providers Care Digital Sales Planner Name Role Phone Pcp, No Primary Care Provider Unavailabl e Encounter Details Date Type Department Care Team (Late st Contact Info) Description 01/20/[address] technologist Clinic [address] [phone] Dental, Surgeon, [address] [place], [place] [phone] Social History Tobacco Use Types Packs/Day Years Used Date Smoking Tobacco: Never Assessed Sex and Gender Information Value Date Recorded Sex Assigned at Not on file Legal Sex Male 6:56 PM EDT Gender Identity Not on file Sexual Orientation Not on file documented as of this encounter Miscellaneous Notes * Telephone Encounter - Marilyn Santos - 01/20/2025 4:37 PM EDT Called to confirm appt date and time. Pt cancelled. documented in this encounter Plan of Treatment Not on file documented as of this encounter Visit Diagnoses Not on filedocumented in this encounter Additional Health Concerns Assessment Noted Time A Body Mass Index follow-up plan has been documented for the patient 12/31/2024 7:54 AM EDT documented as of this encounter Care Teams Digital Sales Planner Relationship Specialty Start Date End Date Pcp, No [address] [place] [address] PCP - General Family Medicine 12/30/24 documented as of this encounter
--- OUTSIDE RECORDS SUMMARY | 2025-02-11 08:57 | XMS_ITS | Encounter Summary ---
Author Organization [facility] Address [address] [place] [address] Care Team Providers Care Toolroom Checker Name Role Phone Unavailable Primary Care Provider Unavailabl e Encounter Details Date Type Department Care Team (Late st Contact Info) Description 12/15/2024 Orders Only External Location [address] [place] [address] Provider, External Social History Tobacco Use Types Packs/Day Years [...] Name Priority Date/Time Associated Diagnosis Comments CT OUTSIDE IMAGES 12/15/2024 12:52 PM EDT documented in this encounter Results * CT OUTSIDE IMAGES (12/15/2024 12:52 PM EDT) Anatomical Region Laterality Modality Computed Tomogra phy 12/15/2024 12:5 2 PM EDT us External Provider IMG CT PROCEDURES Final Result documented in this encounter Visit Diagnoses Not on filedocumented in this encounter
--- OUTSIDE RECORDS SUMMARY | 2025-02-11 08:57 | XMS_ITS | Encounter Summary ---
Author Organization [facility] Address [address] [place] [address] Care Team Providers Care Merchandiser Name Role Phone Unavailable Primary Care Provider Unavailabl e Encounter Details Date Type Department Care Team (Late st Contact Info) Description 12/15/2024 Orders Only External Location [address] [place] [address] Provider, External Social History Tobacco Use Types [...]
--- OUTSIDE RECORDS SUMMARY | 2025-02-11 08:57 | XMS_ITS | Encounter Summary ---
Author Organization [facility] Address [address] [phone] Care Team Providers Care Card Tape Converter Operator Name Role Phone Unavailable Primary Care Provider Unavailabl e Encounter Details Date Type Department Care Team (Late st Contact Info) Description 12/27/2024 Telephone [facility] stamp pad maker [facility] [address] [phone] Dental, Surgeon, [address] [place], [place] [phone] Social History Tobacco Use Types Packs/Day Years Used Date Smoking Tobacco: Never Assessed Sex and Gender Information Value Date Recorded Sex Assigned at Not on file Legal Sex Male 6:56 PM EDT Gender Identity Not on file Sexual Orientation Not on file documented as of this encounter Miscellaneous Notes * Telephone Encounter - Marilyn Santos - 12/27/2024 2:45 PM EDT Called to confirm eval date and time. Pt confirmed. documented in this encounter Plan of Treatment Not on file documented as of this encounter Visit Diagnoses Not on filedocumented in this encounter
--- OUTSIDE RECORDS SUMMARY | 2025-02-11 08:57 | XMS_ITS | Encounter Summary ---
Author Organization [facility] Address [address] [place] [address] Care Team Providers Care Business Technology Analyst Name Role Phone Unavailable Primary Care Provider Unavailabl e Encounter Details Date Type Department Care Team (Late st Contact Info) Description 12/15/2024 Orders Only External Location [address] [place] [address] Provider, External Social History Tobacco Use Types [...]
== END 2025-02-11 23:59 | disposition home or self-care (01) ==
LOC: RAD 08:42
PROVIDERS: PCP Nurse Practitioner; Visit Provider Podiatrist
DX: S92.322A Displaced fracture of second metatarsal bone, left foot, initial encounter for closed fracture; S92.332A Displaced fracture of third metatarsal bone, left foot, initial encounter for closed fracture; S92.342A Displaced fracture of fourth metatarsal bone, left foot, initial encounter for closed fracture; S97.82XA Crushing injury of left foot, initial encounter; S93.622A Sprain of tarsometatarsal ligament of left foot, initial encounter
CPT/HCPCS: 73630

== ENCOUNTER 2025-03-04 08:29 | Outpatient (CLI) | payer OTHER, SELFPAY ==
--- NOTE | 2025-03-04 08:31 | XR_ITS ---
FINAL REPORT CLINICAL HISTORY: left 5th met fracture COMPARISON: 02/11/2025 FINDINGS: Three views of the left foot show callus formation now visualized involving the 2nd, 3rd, and 4th metatarsal fractures indicating fracture healing. There is no evidence of displacement. Widening between the 1st and 2nd metatarsal bases may indicate underlying Lisfranc injury. No new fracture. Fifth metatarsal appears intact. The joint spaces appear normal. IMPRESSION: Healing 2nd through 4th metatarsal fractures without evidence of significant displacement. Reviewed, Interpreted and Dictated by Carmella Hernandez MD Transcribed by Shawanda Hernandez Authenticated and [facility]
--- OUTSIDE RECORDS SUMMARY | 2025-03-04 08:40 | XMS_ITS | Encounter Summary ---
Author Organization [facility] Address [address] [place] [address] Care Team Providers Care Full Time Staff Interpreter Name Role Phone Pcp, No Primary Care Provider [phone] Source Comments This information has been disclosed [...] release of HIV test results or diagnoses. [id number] Health Encounter Details Date Type Department Care Team (Late st Contact Info) Description 12/17/2024 Telephone [facility] Ophthalmology at [phone] [place] [address] Team, Ophthalmology Social History Tobacco [...] on filedocumented in this encounter Care Teams Full Time Staff Interpreter Relationship Specialty Start Date End Date Pcp, No No Address PCP - General 12/15/24 documented as of this encounter
--- OUTSIDE RECORDS SUMMARY | 2025-03-04 08:40 | XMS_ITS | Encounter Summary ---
Author Organization [facility] Address [address] [place] [address] Care Team Providers Care [employer] Principal Name Role Phone Pcp, No Primary Care Provider [phone] Source Comments This information has been disclosed [...] release of HIV test results or diagnoses. [id number] Health Encounter Details Date Type Department Care Team (Late st Contact Info) Description 12/15/2024 Ophth Exam [facility] Ophthalmology at [address] [place] [address] Heri Lozoya MD [address] [place] [address] Social History Tobacco Use Types [...] on filedocumented in this encounter Care Teams [employer] Principal Relationship Specialty Start Date End Date Pcp, No No Address PCP - General 12/15/24 documented as of this encounter
--- OUTSIDE RECORDS SUMMARY | 2025-03-04 08:40 | XMS_ITS | Clinical Summary ---
Author Organization [facility] Address [address] [place] [address] Care Team Providers Care Audit Practice Intern Name Role Phone Virgil Rossi MD Primary Care Provider Allergies No known active allergies Medications doxycycline (MONODOX) 100 MG capsule 1 capsule. 3 Active predniSONE (DELTASONE) 50 MG tablet Take 1 tablet by mouth Daily. Active gabapentin (NEURONTIN) 300 MG capsuleIndications :C7 radiculopathy Take 1 capsule by mouth 2 (Two) Times a Day. 60 capsule 1 4 Active Active Problems Problem Noted Date Diagnosed Date DDD (degenerative disc disease), cervical 2023 Cervical radiculopathy 10/20/2023 Social History Tobacco Use Types Packs/Day Years Used Date Smoking Tobacco: Every Day Cigarettes 1 30 Smokeless Tobacco: Never Tobacco Cessation:Ready to Q uit: Not Asked; Counseling Given: Not Answered Alcohol Use Standard Drinks/Week Comments Not Currently 0 (1 standard drink = 0.6 oz pur e alcohol) Abuse Screen Answer Date Recorded Unsafe at Home or Work/School Not on file Feels Threatened by Someone? Not on file Does Anyone Keep You from Co ntacting Others or Doint Things Outside the Home? Not on file 08/28/2023 Physical Sign of Abuse Present Not on file 0 08/28/2023 Housing Stability Answer Date Recorded Current Living Arrangements Not on file 08/14 Potentially Unsafe Housing Conditions Not on sonia e 08/28/2023 Family and Community Support Answer Jhon e Recorded Help with Day-to-Day Activities Not on file 08/28/2023 Lonely or Isolated Not on file 08/28/2023 Employment Answer Date Recorded Do you want help finding or keeping work or a asif b? Not on file 08/28/2023 Disabilities Answer Date Recorded Concentrating, Remembering, or Making Decisions Difficulty Not on file 08/28/2023 Doing Errands Independently Difficulty Not on fi le 08/28/2023 Education Answer Date Recorded Help with school or training? Not on file Preferred Language Not on file 08/28/2023 Sex and Gender Information Value Date Recorded Sex Assigned at Not on file Legal Sex Male 2:30 PM EST Gender Identity Not on file Sexual Orientation Not on file Last Filed Vital Signs Vital Sign Reading Time Taken Comments Blood Pressure 116/68 08/30/2023 1:08 PM EST Pulse - - Temperature 37 C (98.6 F) 10/20/2023 10:28 AM EST Respiratory Rate - - Oxygen Saturation - - Inhaled Oxygen Concentration - - Weight 63.5 kg (140 lb) 10/20/2023 10:28 AM EST Height 182.9 cm (6') 10/20/2023 10:28 AM EST Body Mass Index 18.99 10/20/2023 10:28 AM EST Plan of Treatment Health Maintenance Due Date Last Done Comments Pneumococcal Vaccine 0-49 (1 of 2 - PCV) 1998 ANNUAL PHYSICAL 08/30/2023 HEPATITIS C SCREENING 08/30/2023 COVID-19 Vaccine ( season) 2024, 12/09/2020 COLOGUARD 2024 COLON CANCER SCREENING 5 YEA R SIGMOIDOSCOPY 2024 COLONOSCOPY 2024 [address] CANCER SCREENING 2024 CT COLONOGRAPHY 2024 FECAL OCCULT BLOOD TEST 2024 FIT Testing (1 year) 2024 INFLUENZA VACCINE 05/14/2025 TDAP/TD VACCINES (3 - Td or Tdap) 08/26/2030 021, 06/19/1995 Care Teams Audit Practice Intern Relationship Specialty Start Date End Date Virgil Rossi MD [address] [place] [address] [address] [facility] [address] [place] [address] PCP - General Family Medicine 08/30/23
--- OUTSIDE RECORDS SUMMARY | 2025-03-04 08:40 | XMS_ITS | Encounter Summary ---
Author Organization [facility] Address [address] [id number] Care Team Providers Care Front Office Representative Name Role Phone Pcp, No Primary Care Provider Unavailabl e Encounter Details Date Type Department Care Team (Late st Contact Info) Description 01/20/2025 Telephone [facility] transition advisor [facility] [address] [address] Dental, Surgeon, [address] [place], [place] [phone] Social History Tobacco Use Types Packs/Day Years [...] documented as of this encounter Care Teams Front Office Representative Relationship Specialty Start Date End Date Pcp, No [address] [place] [address] PCP - General Family Medicine 12/30/24 documented as of this encounter
--- OUTSIDE RECORDS SUMMARY | 2025-03-04 08:40 | XMS_ITS | Clinical Summary ---
Author Organization [facility] Address [address] [phone] Care Team Providers Care Compensation Director Name Role Phone Pcp, No Primary Care Provider Unavailabl e Encounters Date Type Department Care Team Description 01/20/2025 Telephone [facility] diversional therapist's assistant Clinic [address] [place] [phone] Dental, SurgeonMD 12/30/2024 2:30 PM EDT Office Visit [facility] diversional therapist's assistant Clinic [address] [place] [phone] Lan Marshall, DMD Facial laceration, initial encounter; Multiple closed fractures of skull and face without intracranial injury, initial encounter (CMS/HCC); Closed fracture of vault of skull, loss of consciousness (CMS/HCC) 12/30/2024 Travel 12/27/2024 Telephone [facility] diversional therapist's assistant Clinic [address] [place] [phone] Dental, SurgeonMD 12/24/2024 Community Orders Community Practice [address] [place] [phone] Jay Mckee MD Facial laceration, initial encounter (Primary Dx); Closed fracture of nasal bone, initial encounter; Multiple closed fractures of skull and face without intracranial injury, initial encounter (CMS/HCC); Closed fracture of vault of skull, loss of consciousness (CMS/HCC) 12/19/2024 Abstract [facility] diversional therapist's assistant Clinic [address] [place] [phone] Dental, SurgeonMD 12/15/2024 Orders Only External Location [address] [place] [phone] Provider, External 12/15/2024 Orders Only External Location [address] [place] [address] Provider, External 12/15/2024 Orders Only External Location [address] [place] [address] Provider, External from Last 3 Months Social [...] of 3 - 19+ 3-dose series) 1998 [id number] Vaccine (3 - season) 2024 01/06/2021, 12/09/2020 CT Colonography 2024 Colonoscopy 2024 FIT-DNA 2024 FIT 2024 FOBT 2024 Sigmoidoscopy 2024 [facility]-Colorectal Cancer Screening 2024 [facility]-Influenza Vaccine (#1) 2025 Dental Oral Exam 07/03/2025 12/30/2024 [facility]Y-Zoster [...] and face without intracranial injury, initial encounter ([facility]) CT OUTSIDE IMAGES 12/15/2024 12: 52 [...] Final Result from Last 3 Months Insurance [facility] MEDICAID [facility] MEDICAID Care Teams Compensation Director Relationship Specialty Start Date End [place] [address] PCP - General Family Medicine 12/30/24
--- OUTSIDE RECORDS SUMMARY | 2025-03-04 08:40 | XMS_ITS | Encounter Summary ---
Author Organization [facility] Address [address] [id number] Care Team Providers Care Carriage Dogger Name Role Phone Pcp, No Primary Care Provider Unavailabl e Reason for Referral * Consultation (Routine) - Closed Specialty Diagnoses / Procedures Referred By Contac t Referred To Contact Oral Surgery Diagnoses Facial laceration, initial encounter Multiple closed fractures of skull and face without intracranial injury, initial encounter (CMS/HCC) Closed fracture of vault of skull, loss of consciousness (CMS/HCC) Jay Mckee MD [address] [place] [address] Phone: tel: fax: [facility] hedge trimmer Faculty Clinic [address] [place] [address] [address] [place] [address] Phone: tel: Referral ID Status Reason Start Date Expiration Date V isits Requested Visits Authorized [id number] Closed Specialty Services Required 12/24/2024 06/25/2026 1 1 Encounter Details Date Type Department Care Team (Latest Contact Info) Description 12/24/2024 Community [facility] [address] [place] [address] Jay Mckee MD [facility] [place] [address] Facial laceration, initial encounter (Primary Dx); Closed [...] and face without intracranial injury, initial encounter ([facility]) Closed fracture of vault of skull, loss of consciousness (CMS/[facility]) Expected: 12/24/2024 (Approximate), Expires: 06/26/2026 documented as of this encounter Visit Diagnoses Diagnosis Facial laceration, initial encounter- Primary Closed fracture of nasal bone, initial encounter Multiple closed fractures of skull and face without intracranial injury, initial encounter ([facility]) Closed fracture of vault of skull, loss of consciousness (CMS/[facility]) Closed fracture of vault of skull without mention of intracranial injury, with loss of consciousness of unspecified duration documented in this encounter Care Teams Carriage Dogger Relationship Specialty Start Date [place] [address] PCP - General Family Medicine 12/30/24 documented as of this encounter
--- OUTSIDE RECORDS SUMMARY | 2025-03-04 08:40 | XMS_ITS | Clinical Summary ---
Author Organization [facility] Address [address] [place] [address] Care Team Providers Care Ammunition Storage Superintendent Name Role Phone Pcp, No Primary Care Provider [phone] Source Comments This information has been disclosed [...] therelease of HIV test results or diagnoses. [id number] Allergies No known active allergies Medications bacitracin 500 unit/gram ointmentIndicat ions:Open extensive facial fractures, initial encounter ([facility]) Apply topically 2 times a day. 30 g Active Active Problems Problem Noted Date Diagnosed Date Facial laceration 12/15/2024 Encounters Date Type Department Care Team Description 12/17/2024 Telephone [facility] Ophthalmology at [address] [place] [phone] Team, Ophthalmology 12/15/2024 12:14 PM EDT - 12/15/2024 8:12 PM EDT Emergency [facility] Emergency Department [address] [place] [phone] Noah Arndt MD Open extensive facial fractures, initial encounter ([facility]) (Primary Dx); Facial laceration, initial encounter Discharge Disposition: Home or Self Care WITHOUT Home Care Services 12/15/2024 Ophth Exam [facility] Ophthalmology at [place] [address] [facility] [address] [place] [address] Heri Lozoya MD from Last [...] 2 - PCV) 1998 Immunization: COVID-19 ( - season) 2024 Cologuard (FIT-DNA) 2024 Colonoscopy 2024 Colorectal Cancer Screening (MyChart) 2024 Stool Testing (gFOBT) 2024 Immunization: Influenza (MyChart) (#1) 2025 Procedures Procedure Name Priority Date/Time Associated Diagnosis [...] 51 mm Hg 12/15/2024 1:12 PM EDT [facility] pO2, Frederic 47(H) 25 - 40 mm Hg 12/15/2024 1:12 PM EDT [facility] HCO3, Frederic 24 24 - 28 mmol/L 12/15/2024 1:12 PM EDT [facility] CO2 Content, Venous 26 25 - 29 mmol/L 12/15/2024 1:12 PM EDT [facility] Base Excess, Frederic -0.2 -2.0 - 3.0 mmol/L 12/15/2024 1:12 PM EDT [facility] Sodium 135(L) 136 - 146 mEq/L 12/15/2024 1:12 PM EDT [facility] Potassium 3.4(L) 3.5 - 5.0 mEq/L 12/15/2024 1:12 PM EDT [facility] Comment:In the event of in-v itro hemolysis, potassium results may be falsely elevated. Always interpret lab results in conjunction with clinical findings. If hemolysis is suspected, a serum sample may be collected for repeat assessment of potassium. Free Calcium, WB 5.10 4.50 - 5.30 mg/dL 12/15/2024 1:12 PM EDT [facility] Glucose 110(H) 70 - 100 mg/dL 12/15/2024 1:12 PM EDT [facility] Hematocrit. Blood Gas Panel 40.0 40 - 52 % 12/15/2024 1:12 PM EDT [facility] Hemoglobin, Blood Gas Panel 13.3(L) 14.0 - 18.0 g/dL 12/15/2024 1:12 PM EDT [facility] %HBO2, Venous 78.7(H) 40.0 - 70.0 % 12/15/2024 1:12 PM EDT [facility] Carboxyhemoglobi n, Venous 6.3(H) 0.0 - 2.0 % 12/15/2024 1:12 PM EDT [facility] Comment: CARBOXYHEMOGLOBIN (CO) REFERENCE RANGES: Non-Smokers: <2 % Smokers: <8 % TOXIC: >20 % Methemoglobin, Venous 0.7 0.0 - 1.5 % 12/15/2024 1:12 PM EDT [facility] Reduced hemoglobin, Venous 14.2 % 12/15/2024 1:12 PM EDT [facility] Comment:The reference interv al for this test has not been established. Interpret the result carefully within clinical context. Lactate, Frederic 1.8(H) 0.5 - 1.6 mmol/L 12/15/2024 1:12 PM EDT [facility] Blood, Venous 12/15/2024 12: 21 PM EDT 12/15/2024 1:08 PM EDT us Noah Arndt MD LAB BLOOD ORDERABLES Final Result [facility] [address] [place] [id number], [facility] * Ethanol, Serum (12/15/2024 12:21 PM EDT) Ethanol <10 0 - 10 mg/dL 12/15/2024 1:34 PM EDT [facility] Serum 12/15/2024 12:2 1 PM EDT 12/15/2024 1:08 PM EDT us Noah Arndt MD LAB BLOOD ORDERABLES Final Result [facility] [address] [facility]. [address] * ABO/Rh (12/15/2024 12:21 PM EDT) ABO Grouping O 12/15/2024 1:34 PM EDT [facility] Rh Type Positive 12/15/2024 1:34 PM EDT [facility] Blood 12/15/2024 12:2 1 PM EDT 12/15/2024 1:09 PM EDT us Inbound Adt I/F BLOOD BANK TEST ORDERABLES Final Result Performing Organization Address City/[facility]/ZIP Co de Phone Number [facility] [address] [facility]. [address] * (ABNORMAL) CBC (12/15/2024 12:21 PM EDT) WBC 11.2(H) 3.8 - 10.8 10E3/uL 12/15/2024 1:18 PM EDT [facility] RBC 4.54 4.20 - 5.80 10E6/uL 12/15/2024 1:18 PM EDT [facility] Hemoglobin 14.9 13.2 - 17.1 g/dL 12/15/2024 1:18 PM EDT [facility] Hematocrit 42.5 38.5 - 50.0 % 12/15/2024 1:18 PM EDT [facility] MCV 93.7 80.0 - 100.0 fL 12/15/2024 1:18 PM EDT [facility] MCH 32.8 27.0 - 33.0 pg 12/15/2024 1:18 PM EDT [facility] MCHC 35.0 32.0 - 36.0 g/dL 12/15/2024 1:18 PM EDT [facility] RDW 13.2 11.0 - 15.0 % 12/15/2024 1:18 PM EDT [facility] Platelets 217 140 - 400 10E3/uL 12/15/2024 1:18 PM EDT [facility] MPV 7.5 7.5 - 11.5 fL 12/15/2024 1:18 PM EDT [facility] Whole Blood 12/15/2024 12:2 1 PM EDT 12/15/2024 1:08 PM EDT Noah Arndt MD LAB BLOOD ORDERABLES Final Result [facility] [address] * Antibody screen (12/15/2024 12:21 PM EDT) Antibody Screen Negative 12/15/2024 1:49 PM EDT [facility] Blood 12/15/2024 12:2 1 PM EDT 12/15/2024 1:09 PM EDT Narrative [facility] - 12/15/2024 1:51 PM EDT Testing performed by [facility] Transfusion Service us Inbound Adt I/F BLOOD BANK TEST ORDERABLES Final Result [facility] [address] [facility]. [address] * BUN (12/15/2024 12:21 PM EDT) BUN 11 7 - 25 mg/dL 12/15/2024 1:33 PM EDT [facility] Plasma 12/15/2024 12:2 1 PM EDT 12/15/2024 1:08 PM EDT us Noah Arndt MD LAB BLOOD ORDERABLES Final Result [facility] [address] [facility]. [address] * Creatinine, serum (12/15/2024 12:21 PM [...] Arndt MD LAB BLOOD ORDERABLES Final Result [facility] [address] [place] [address], [facility] from Last 3 Months Insurance [facility] MANAGED MEDICAID LIABILITY Member Subscriber Plan / Payer (Ef fective 2024-Present) Name:Gabe He Relation to Subscriber:Self Name:Gabe He Payer ID:[id number] Group ID:Not on file Type:Indemnijose Address: [address] [place] [address] Care Teams Ammunition Storage Superintendent Relationship Specialty Start Date End Date Pcp, No No Address PCP - General 12/15/24
--- OUTSIDE RECORDS SUMMARY | 2025-03-04 08:40 | XMS_ITS | Clinical Summary ---
Author Organization [facility] Address [address] [place] [address] Phone Care Team Providers Care Dry Molder Name Role Phone Nonstaff, Referring Primary Care [...] Sigmoidoscopy 2024 Virtual Colonography 2024 Influenza Vaccine (#1) 2025 DTaP/TDaP/Td (6 - Td or Tdap) 08/26/2030 08/26/2020, 06/19/1995, 12/12/1984, Additional history exists Meningococcal B Vaccine Aged Out No l onger eligible based on patient's age to complete this topic Insurance [employer] Care Teams Dry Molder Relationship Specialty Start Date End Date Nonstaff, Referring PCP - General 03/10/12
== END 2025-03-04 23:59 | disposition home or self-care (01) ==
LOC: RAD 08:30
PROVIDERS: PCP Nurse Practitioner; Visit Provider Podiatrist
DX: S92.325D Nondisplaced fracture of second metatarsal bone, left foot, subsequent encounter for fracture with routine healing; S92.335D Nondisplaced fracture of third metatarsal bone, left foot, subsequent encounter for fracture with routine healing; S92.345D Nondisplaced fracture of fourth metatarsal bone, left foot, subsequent encounter for fracture with routine healing; S97.82XD Crushing injury of left foot, subsequent encounter
CPT/HCPCS: 73630